=== PATIENT | female | born 1955 ===

== ENCOUNTER 2020-06-23 13:16 | Inpatient (IN) | payer MEDICARE, SELFPAY ==
[2020-06-23] VITALS (25 sets, daily range): BP systolic 148–178; BP diastolic 53–78; PULSE 67–89; RESP 18–29; TEMP 36.7–38.7; O2SAT 93–100; BMI 29.2
--- NOTE | ~2020-06-23 | CT_ITS ---
EXAMINATION: CTA chest PE protocol EXAM DATE: 06/24/2020 12:30 INDICATION: Hypoxia, elevated d dimer. TECHNIQUE: Spiral CTA of the chest (pulmonary arteries) was performed with 100 cc Omnipaque 350 intr avenous contrast injection. Images were acquired during the pulmonary arterial phase. Coronal maxi mum intensity projection 3D-reconstructions were created by the technologist on dedicated workstation . Axial, coronal and sagittal reformatted images were reviewed. The dose-length product (DLP) for t his examination was 798.42 mGy-cm. The exposure was tailored according to patient size (auto mA exp osure control), and iterative reconstruction (ASIR) was used as additional dose reduction technique. Correlation is made to chest x-ray from yesterday. FINDINGS: The main, central pulmonary arteries are dilated which can indicate elevated pulmonary art erial pressure, pulmonary arterial hypertension. No intraluminal filling defects, no pulmonary emboli suspected. No thoracic aortic dissection. There is large right pleural effusion with complete collapse of the right lower lobe and segmental co llapse of the right upper lobe and lingula, compressive atelectasis. There is multifocal left lower lobe airspace disease consistent with pneumonia. Small left pleural ef fusion, left basilar segmental atelectasis. Tracheobronchial tree is patent. There is no mediastina l, hilar or axillary lymphadenopathy. There is no pneumothorax. There is cardiomegaly. There is mild coronary arterial calcification, arterial sclerosis. Nodular liver surface suspicious for cirrh osis. Trace perihepatic ascites. There is mild thoracic spondylosis without osteoblastic or osteolyt ic lesions identified. IMPRESSION: 1. Large right pleural effusion, associated compressive lobar atelectasis. Consider ultrasound-guide d thoracentesis. 2. Multifocal left lower lobe pneumonia. 3. Small left pleural effusion, adjacent segmental atelectasis. 4. Cardiomegaly. Pulmonary arterial hypertension. 5. Probable cirrhosis. 6. No pulmonary emboli. Reviewed, dictated and finalized at location B. MVA REACTOR OPERATOR IMPRESSION: 1. Large right pleural effusion, associated compressive lobar atelectasis. Con oil changer ultrasound-guided thoracentesis. 2. Multifocal left lower lobe pneumonia. 3. Small left pleural effusion, adjacent segmental atelectasis. 4. Cardiomegaly. Pulmonary arterial hypertension. 5. Probable cirrhosis. 6. No pulmonary emboli.
--- NOTE | ~2020-06-23 | XR_ITS ---
EXAMINATION: [id number]_[id number]_CR DATE: 06/25/2020 11:49 INDICATION: Large right pleural effusion TECHNIQUE: frontal view of the chest was obtained. COMPARISON: Chest radiograph dated 06/23/2020 FINDINGS: Decrease in size of a now small to moderate right pleural effusion. New no pneumothorax or left-sided pleural effusion. Increasing patchy airspace opacities in the left mid and lower lung zones. Cardiom egaly. IMPRESSION: 1. Decreased small to moderate right pleural effusion postthoracentesis. No pneumothorax. 2. Right basilar opacities along with increasing patchy airspace opacities in the left mid and lower lung zone which could represent pneumonia and/or atelectasis. 3. Cardiomegaly. Reviewed, dictated and finalized at location A. ED RUBBER GOODS CUTTER IMPRESSION: 1. Decreased small to moderate right pleural effusion postthoracentesis. No pne umothorax. 2. Right basilar opacities along with increasing patchy airspace opacities in t he left mid and lower lung zone which could represent pneumonia and/or atelecta sis. 3. Cardiomegaly.
--- NOTE | ~2020-06-23 | XR_ITS ---
EXAMINATION: XR chest 1V portable DATE: 06/23/2020 14:19 INDICATION: Respiratory failure TECHNIQUE: frontal view of the chest was obtained. COMPARISON: None FINDINGS: Airspace opacity in the right mid and lower lung zone with blunting at the costophrenic angle consist ent with moderate sized right pleural effusion with associated atelectasis and/or pneumonia. Mild pat maisha airspace opacity left lung base. No pulmonary edema, pneumothorax or left-sided pleural effusion. The cardiomediastinal silhouette is within normal limits for AP technique. Visualized bones and soft tissues are unremarkable. IMPRESSION: 1. Unilateral moderate-sized right pleural effusion. 2. Opacities in the bilateral lower lung zones which could represent atelectasis and/or pneumonia. Reviewed, dictated and finalized at location A. ER AND CHECKERER SPECIALS IMPRESSION: 1. Unilateral moderate-sized right pleural effusion. 2. Opacities in the bilateral lower lung zones which could represent atelectasi s and/or pneumonia.
--- NOTE | ~2020-06-23 | US_ITS ---
EXAMINATION: US venous doppler LE DATE: 06/24/2020 09:25 INDICATION: Lower limb swelling. Elevated d-dimer. TECHNIQUE: Grayscale ultrasound images without and with compression and Doppler ultrasound images of the bilateral lower extremity veins were obtained. COMPARISON: None. FINDINGS: The visualized portions of right common femoral vein, profunda (deep) femoral vein, femoral vein, pop liteal vein, posterior tibial veins, peroneal veins, gastrocnemius vein and greater saphenous vein ou tflow are patent. The visualized portions of left common femoral vein, profunda femoral vein, femoral vein, popliteal v ein, posterior tibial veins, gastrocnemius vein and greater saphenous vein outflow are patent. The le ft peroneal veins and posterior tibial veins in the distal calf are unable to be assessed due to the presence of casting material about the left ankle and distal lower leg. IMPRESSION: 1. No deep venous thrombosis in either lower limb. Reviewed, dictated and finalized at location A. ARCH SUBJECT
--- NOTE | ~2020-06-23 | US_ITS ---
EXAMINATION: US right upper quadrant DATE: 06/25/2020 11:48 INDICATION: Cirrhosis on chest CT TECHNIQUE: Multiple grayscale and Doppler ultrasound images of the abdomen were obtained. COMPARISON: CT dated 06/24/2020 FINDINGS: The pancreatic the is normal in appearance. The pancreatic head and tail are obscured. Liver has nor mal echogenicity and contour, with coarsened echotexture and mild surface nodularity consistent with cirrhosis. No liver lesion identified. No intrahepatic biliary duct dilation suspected. Portal venous flow was seen in the hepatopetal, normal direction and has normal Doppler waveform. There are multip le echogenic nodules along the wall of the gallbladder including along the nondependent wall consiste nt with gallbladder polyps, the largest measuring 7 mm in maximal diameter. There is some sludge jyoti g the nondependent gallbladder wall. No evident shadowing cholelithiasis. No dilation of the gallblad oswaldo or gallbladder wall thickening. Sonographic Johansen sign was reported as negative by the sonograph er. The common bile duct measures 6 mm in maximal diameter which is within normal limits. Splenomegaly measuring 14.6 cm in length suggestive of secondary portal venous hypertension. There is cortical thinning at the right kidney with increased echogenicity consistent with medical renal dise ase. There is more focal increased echogenicity at the renal pyramids, one demonstrates an posterior acoustic shadowing which could be seen with medullary nephrocalcinosis and/or small renal stones. No hydronephrosis. The visualized proximal inferior vena cava is normal. Visualized proximal aorta is no rmal in caliber. Small amount of perihepatic ascites. Right pleural effusion. IMPRESSION: 1. Nodular liver surface with coarsened echogenicity consistent with cirrhosis. Splenomegaly suggests secondary portal venous hypertension. 2. A few gallbladder polyps measuring up to 7 mm. Given patient age would is an increased risk of mal ignancy and would consider surgical consultation for elective cholecystectomy. Otherwise recommend si x-month follow-up ultrasound or subsequent annual follow-up for 5 years. 3. Mildly atrophic right kidney with increased echogenicity consistent with medical renal disease and increased echogenicity and suggestion of some shadowing at the renal pyramids suspicious for medulla ry nephrocalcinosis. 4. Right pleural effusion and small amount of perihepatic ascites. Reviewed, dictated and finalized at location A. WORK SUPERVISOR IMPRESSION: 1. Nodular liver surface with coarsened echogenicity consistent with cirrhosis. Splenomegaly suggests secondary portal venous hypertension. 2. A few gallbladder polyps measuring up to 7 mm. Given patient age would is an increased risk of malignancy and would consider surgical consultation for elec tive cholecystectomy. Otherwise recommend six-month follow-up ultrasound or sub sequent annual follow-up for 5 years. 3. Mildly atrophic right kidney with increased echogenicity consistent with med ical renal disease and increased echogenicity and suggestion of some shadowing at the renal pyramids suspicious for medullary nephrocalcinosis. 4. Right pleural effusion and small amount of perihepatic ascites.
--- NOTE | ~2020-06-23 | XR_ITS ---
XR chest 1V portable DATE: 06/27/2020 08:31 INDICATION: Hypoxia TECHNIQUE: Portable upright AP chest on June 27, 2020 at 0833 hours COMPARISON: June 25, 2020 portable AP chest FINDINGS: There is prominent fluid collection in the minor fissure versus less likely prominent disco id atelectasis across the right mid lung. There is blunting of the right costophrenic angle consisten t with terl-oy-eilwocec pleural effusion. There is cardiomegaly, pulmonary vascular congestion. There are persistent bilateral pulmonary infilt rates, which may be consistent with pulmonary edema and/or pneumonia. The infiltrates are increased o n the right since June 25, 2020. IMPRESSION: Cardiomegaly, pulmonary vascular congestion, right pleural effusion, ingesting congestive heart failure Bilateral pulmonary infiltrates, increased on the right since 06/25/2020. Differential diagnosis inclu shauna pulmonary edema and/or pneumonia Reviewed, dictated and finalized at location A. ET COLLECTOR IMPRESSION: Cardiomegaly, pulmonary vascular congestion, right pleural effusion , ingesting congestive heart failure Bilateral pulmonary infiltrates, increased on the right since 06/25/2020. Differ ential diagnosis includes pulmonary edema and/or pneumonia
--- NOTE | ~2020-06-23 | CT_ITS ---
EXAMINATION: CT brain wo [facility] EXAM DATE: 06/24/2020 12:30 INDICATION: Lethargy. TECHNIQUE: Spiral CT of the head was performed without contrast. Axial, coronal and sagittal images were reviewed. The dose-length product (DLP) for this examination was 605.33 mGy-cm. The exposure w as tailored according to patient size, and iterative reconstruction (ASIR) was used as additional dos e reduction technique. There is no prior study for comparison. FINDINGS: There is no acute intraparenchymal hemorrhage. No evidence of intraparenchymal brain mass lesion. No evidence of acute infarction. Please note that initial head CT has limited sensitivity f or small or acute infarctions. There is mild periventricular and subcortical hypodensity, nonspecific but probably related to small vessel ischemic disease. There is mild prominence of the sulci and v entricles related to cerebral atrophy. There is intracranial carotid arteriosclerosis. There are n o extra-axial collections. There is no mass effect or midline shift. The orbits are unremarkable. Soft tissue is unremarkable. The visualized sinuses and mastoid air cells are well aerated. IMPRESSION: 1. No acute intracranial findings. 2. Chronic age related findings. Reviewed, dictated and finalized at location B. OR INFORMATION SECURITY ANALYST
--- NOTE | ~2020-06-23 | US_ITS ---
EXAMINATION: US thoracentesis DATE: 06/25/2020 11:48 INDICATION: pleural effusion TECHNIQUE: The procedure and its risks and benefits were discussed with the patient. Potential risks discussed included bleeding, infection, and pneumothorax. The patient understood the risks and agreed to proceed. The skin was prepped and draped in sterile fashion. 1% lidocaine was used for local anes thesia. Under ultrasound guidance, a 5 Fr catheter with trochar was advanced into the right pleural e ffusion. Fluid was aspirated. The catheter was removed, and a dressing was applied. There were no imm ediate complications. FINDINGS: Ultrasound images demonstrate a large right pleural effusion and the catheter within the fluid. IMPRESSION: 1. Successful ultrasound-guided thoracentesis yielding 1000 mL of dark yellow fluid. Reviewed, dictated and finalized at location A. [employer] MAINTENANCE ENGINEER
--- NOTE | 2020-06-23 13:20 | ED.SOB ---
HPI - SOB/Dyspnea General Chief Complaint: Shortness of Breath/Dyspnea Stated Complaint: sob/from dialysis Time Seen by Provider: 06/23/20 13:21 History of Present Illness HPI Narrative: History limited by medical condition 65 yo female presents to the ED for SOB. She presented to dialysis this morning and was too SOB to receive dialysis. She was diagnosed with COVID-19 5 days ago. She arrives on oxygen, which she says she is not on at baseline. RA oxygen saturation in the 40s. No chest pain or fever. Related Data Allergies Allergy/AdvReac Type Severity Reaction Status Date / Time phenazopyridine Allergy Unknown Verified 08/04/10 10:54 Sulfa (Sulfonamide Allergy Unknown Verified 08/04/10 10:44 Antibiotics) Review of Systems Review of Systems: ROS unobtainable: Yes unobtainable due to medical condition Constitutional: Constitutional: Reports chills, Reports fatigue and Reports weakness Cardiovascular: Cardiovascular: Denies chest pain Respiratory: Respiratory: Reports dyspnea Gastrointestinal: Gastrointestinal: Reports nausea Neurologic: Reports weakness [facility] Past Medical History Medical History (Updated 06/23/20 @ 15:29 by Miguel Lynn MD) COVID-19 ESRD on dialysis Social History Social History (Updated 06/23/20 @ 15:24 by Miguel Lynn MD) Gender identity (if verbalized by the patient): Female Exam Const: General: ill appearing acutely and chronically Other: moderate distress. Oriented x2. HENMT: Head: normal to inspection Resp: Effort & Inspection: labored and tachypneic Auscultation: rales on the right and wheezes Cardio: Rate: regular rate Rhythm: regular rhythm GI: GI Palp: Yes Soft to palpation and No Tenderness to palpation present (GI) Skin: General skin exam: normal color Neuro: General: moves all extremities, no focal motor deficits and CN's II-XI intact bilaterally Speech: normal speech Extrem: General: no edema Other: Cast to left lower leg Course Vital Signs Vital signs: Vital Signs Pulse Rate 89 06/23/20 13:36 Respiratory Rate 28 H 06/23/20 13:36 Pulse Oximetry 96 06/23/20 13:36 Temperature 36.7 C 06/23/20 13:56 Pulse Rate 72 06/23/20 15:45 Respiratory Rate 23 H 06/23/20 15:45 Blood Pressure 160/53 H 06/23/20 15:32 Pulse Oximetry 100 06/23/20 15:45 MDM - SOB/Dyspnea Differential Diagnosis Differential diagnosis: Likely acute exacerbation of chronic obstructive airways disease, congestive heart failure, community acquired pneumonia and other (fluid overload, COVID-19 pneumonia) Medical Records Attestation: I reviewed the patient's medical records. Lab Data Attestation: I reviewed the patient's lab results. Result diagrams: 06/23/20 13:51 06/23/20 13:50 Labs: Lab Results 06/23/20 06/23/20 06/23/20 Range/Units 13:50 13:50 13:50 WBC (4.5-10.0) K/mm3 RBC (4.2-5.4) M/mm3 Hgb (12.0-15.0) g/dL Hct (37.0-47.0) % MCV (80-100) fl MCH (26-34) pg MCHC (32-36) g/dl RDW (11.5-14.5) % Plt Count (150-375) k/mm3 MPV (7.4-10.4) fl Immature Gran % (Auto) (0-0.5) % Neut % (Auto) (45.5-73.1) % Lymph % (Auto) (18.3-44.2) % [place]iken % (Auto) (2.6-8.5) % Eos % (Auto) (0-4.4) % Baso % (Auto) (0.2-1.2) % Lymph # (Auto) (0.9-3.2) K/mm3 Aiken # (Auto) (0.1-0.6) K/mm3 Eos # (Auto) (0-0.3) K/mm3 Baso # (Auto) (0.0-0.1) K/mm3 Abs Immat Gran (auto) (0.00-0.031) K/mm3 Absolute Neuts (auto) (1.3-6.7) K/mm3 Absolute Nucleated RBC (0.0-0.012) K/mm3 Nucleated RBC % (0.0-0.2) % PT 13.9 (11.1-14.7) Seconds INR 1.0 APTT 41.7 H (22.3-36.8) SECONDS Methemoglobin (0-1.5) %THb Expiratory Pressure CMH2O Inspiratory Pressure CMH2O Sodium 127 L (137-145) mmol/L Potassium 3.3 L (3.4-5.0) mmol/L Chloride 84 L (98-107) mmol/L Carbon Dioxide 36 H (22-30) m
--- NOTE | 2020-06-23 13:31 | ECG_ITS ---
Measurements Intervals [place] Rate: 88 P: 31 VT: 225 QRS: -55 QRSD: 158 T: 44 QT: 421 QTc: 512 Interpretive Statements SINUS RHYTHM WITH FIRST DEGREE AV BLOCK LEFT AXIS DEVIATION RIGHT BUNDLE BRANCH BLOCK VOLTAGE CRITERIA FOR LVH BASELINE WANDER- II, III, AVR, AVL, AVF, V3-V6 ABNORMAL ECG Electronically Signed On 06-23-2020 14:05:32 HIGH SCHOOL AUTO REPAIR TEACHER by Scottie Wan D.O.
[2020-06-23] MEDS: IPRATROPIUM BR 0.02% INH SOLN 0.5 MG/2.5 ML VIAL 1 MG INHALATION (13:49)
[2020-06-23] MEDS: ALBUTEROL SULFATE NEB 2.5 MG/0.5 ML INH 10 MG INHALATION (13:49)
[2020-06-23 14:05] LABS: Basophils Percent Auto 0.5 % (0.2-1.2); Hematocrit 29.2 % (37.0-47.0); Immature Granulocyte Absolute 0.04 K/mm3 (0.00-0.031); Lymphocytes Percent Auto 10.3 % (18.3-44.2); Mean Corpuscular HGB Conc 34.2 g/dl (32-36); Mean Corpuscular Hemoglobin 31.5 pg (26-34); Mean Corpuscular Volume 92.1 fl (80-100); Monocytes Absolute Auto 0.3 K/mm3 (0.1-0.6); Monocytes Percent Auto 8.2 % (2.6-8.5); Neutrophils Absolute Auto 3.1 K/mm3 (1.3-6.7); Platelet Count Result 163 k/mm3 (150-375); Red Blood Count 3.17 M/mm3 (4.2-5.4); Red Cell Distribution Width 13.9 % (11.5-14.5); White Blood Count 3.9 K/mm3 (4.5-10.0)
[2020-06-23 14:14] LABS: Prothrombin Time 13.9 Seconds (11.1-14.7)
[2020-06-23 14:14] LABS: Alveolar/Arterial O2 Gradient 238.5 mmHg; Base Excess ABG 7.3 mEq/l (+/-2.0); Carboxyhemoglobin 0.1 % THb (0-2.0); Fractional Inspired Oxygen 50 %; HCO3 ABG 31.7 mEq/l (22.0-26.0); Methemoglobin ABG 0.2 %THb (0-1.5); Oxygen Content ABG 13.4 %vol (16.0-22.0); Oxygen Saturation ABG 94.6 % (95.0-100.0); Oxyhemoglobin 92.9 % THb (90.0-100.0); PCO2 ABG 44.3 mmHg (35.0-45.0); PO2 ABG 68.2 mmHg (80.0-100.0); PO2 FiO2 Ratio Arterial Blood 1.36 %; Reduced Hemoglobin 6.8 %THb (0-5.0); Total Hemoglobin 10.2 g/dL (12.0-18.0); pH ABG 7.472 (7.350-7.450)
[2020-06-23 14:15] LABS: Partial Thromboplastin Time 41.7 SECONDS (22.3-36.8)
[2020-06-23 14:17] LABS: Lactic Acid Reflex 0.6 mmol/L (0.7-2.1)
[2020-06-23 14:18] LABS: Alanine Aminotransferase 13 U/L (4-35); Albumin Level 3.5 g/dL (3.5-5.1); Alkaline Phosphatase 58 U/L (38-126); Anion Gap 7 mmol/L (8-16); Aspartate Amino Transferase 42 U/L (14-36); Bilirubin,Total 0.7 mg/dL (0.2-1.3); Blood Urea Nitrogen 40 mg/dL (7-17); Calcium 8.7 mg/dL (8.4-10.2); Carbon Dioxide 36 mmol/L (22-30); Chloride 84 mmol/L (98-107); Estimated CRCL calculation 8 ml/min; Estimated Glomerular Filt Rate 6; Glucose 81 mg/dL (65-105); Magnesium 2.1 mg/dL (1.6-2.3); Potassium 3.3 mmol/L (3.4-5.0); Sodium 127 mmol/L (137-145)
[2020-06-23 14:19] LABS: Device NON-INVASIVE VENT; Modified Allen's Test Pass; Site Drawn LEFT RADIAL
[2020-06-23 14:20] LABS: Non-Invasive Expiratory Pressure 6 CMH2O; Non-Invasive Inspiratory Pressure 12 CMH2O
[2020-06-23 14:28] LABS: CRP 13.4 mg/dL (<1.0)
--- NOTE | 2020-06-23 17:18 | PM.CNNEP ---
Assessment and Plan Assessment and plan (1) End stage renal disease: Code(s): N18.6 - End stage renal disease Status: Acute Assessment and Plan: normally does HD on // schedule however, given stable electrolytes and no evidence of pulmonary edema, plan HD tomorrow follow electrolytes, clearance, and volume status (2) Acute respiratory failure with hypoxia: Code(s): J96.01 - Acute respiratory failure with hypoxia Status: Acute Assessment and Plan: presumably due to a combination of COVID-19 + pleural effusion presumably to start decadron but remdesivir contraindicated given her ESRD consideration to convalescent plasma(?) follow inflammatory markers (3) Altered mental status: Code(s): R41.82 - Altered mental status, unspecified Status: Acute Assessment and Plan: acute change versus chronic issue? (however, she recognized me even though I have not seen her in several years) related to acute medical issues(?) - hypoxia, COVID-19, missed HD treatment today?? follow mentation for now (4) Pleural effusion on right: Code(s): J90 - Pleural effusion, not elsewhere classified Status: Acute Assessment and Plan: acute or chronic? consider thoracentesis depending on hospital course (5) Hypertension: Code(s): I10 - Essential (primary) hypertension Status: Acute Assessment and Plan: reasonable control follow hemodynamics post-HD (6) Ankle fracture, left: Code(s): S82.892A - Other fracture of left lower leg, initial encounter for closed fracture Status: Acute Assessment and Plan: cast in place follow-up with outpatient Orthopedics (7) Diabetes: Code(s): E11.9 - Type 2 diabetes mellitus without complications Status: Acute Assessment and Plan: follow accuchecks glycemic control Will continue to follow. History of Present Illness Reason for Consult Consult date: 06/23/20 Reason for consult: end stage renal disease Chief Complaint Chief complaint: Acute respiratory with hypoxia/ESRD History of Present Illness Narrative: The patient is a 65-year-old female with a past medical history as outlined below who presented to [facility] Emergency room from her outpatient dialysis unit via EMS for further evaluation of acute onset shortness of breath. The patient has not been feeling well for about a week and recently tested positive for COVID-19 approximately 5 days ago. due to her COVID-19 positive status, her dialysis unit was transition to [facility] in [place], [place] as this unit has been treating COVID-19 patient's for last several months. Apparently, upon her presentation and to her dialysis unit earlier today for her scheduled dialysis treatment she was reportedly visibly short of breath. Apparently, her O2 saturations were 40% on room air and with application of 4 L of oxygen increased only to 77 - 80%. She normally does not wear oxygen at all and the shortness of breath seem to come on suddenly associated with some vomiting. Because of these findings, EMS was called and she was subsequently brought to the ER for further evaluation. Workup and evaluation in the emergency room demonstrated the patient to be in mild respiratory distress and given that supplemental oxygen alone was not maintaining her oxygen saturations, she was switched to BiPAP with significant improvement in her oxygen saturations as well as her respiratory status. Routine blood test demonstrated labs consistent with her known history of end-stage renal disease and her chest x-ray showed findings consistent with possible pneumonia as well as a moderate-sized right pleural effusion. Due to her symptoms of shortness of breath, her chest x-ray findings, as well as her known history of COVID-19, she was maintained on BiPAP therapy and subsequent admitted to the hospital for further
--- NOTE | 2020-06-23 17:27 | ADMGEN ---
This patient, Allyson Franks, was admitted to IMU Room 214-01. Patient/family oriented to hospital policies and general routines including ID bracelet, bed and alarms, visiting hours, pain management, procedures, bathroom and other care routines, personal items, smoking policy, room service/diet, and visiting hours. Information on how to activate the Rapid Response Team has been discussed. Patient/Family are encouraged to report perceived risks to care and to ask questions if they do not understand what they are told or what they should do.
--- NOTE | 2020-06-23 18:15 | PM.IMHP ---
H&P: HPI History of Present Illness Date/Time: 06/23/20 18:15 Chief Complaint: Shortness of breath. Narrative: This is a 65-year-old female with insulin-dependent diabetes, hypertension, end-stage renal disease on hemodialysis, and chronic anemia who presented to the emergency department earlier today via EMS from dialysis for evaluation of shortness of breath. She has not been feeling well for about a week and tested positive for COVID-19 for or 5 days ago. Upon presentation to dialysis today she was quite short of breath with a reported SpO2 in the 40s on room air and thus she was sent to the emergency department where she was started on BiPAP with improvement in her saturations and respiratory distress. Chest x-ray showed findings consistent with pneumonia as well as a moderate size right pleural effusion and she is being admitted in this setting. At the time of my evaluation she is comfortable on the BiPAP and has no significant complaints. She seems a little bit confused and is alert and oriented x2, and the day shift nurse indicates to me that this has been her baseline, at least as long as she has been at the rehab facility after breaking her left ankle. At this time she denies headache, chest pain, pleuritic pain, nausea, vomiting, and diarrhea. Review of Systems Review of Systems: Narrative: A review of systems was completed with pertinent positives and negatives as per HPI. Appetite has not been good. Nurse reports that she would not swallow her pills this evening. Temperature was high at that time so it may be related to that. No known history of venous thromboembolism. Except as documented, all other systems were reviewed and are negative. [facility] Past Medical History Medical History (Updated 06/24/20 @ 02:45 by Tiff Chapin PA-C) Anemia of chronic disease COVID-19 Depression Diabetic neuropathy Diabetic retinopathy End-stage renal disease on hemodialysis Hyperlipidemia Hypertension Insulin dependent type 2 diabetes mellitus Surgical History Surgical History (Updated 06/24/20 @ 02:38 by Tiff Chapin PA-C) Status post creation of arteriovenous fistula Family History Family History (Updated 06/24/20 @ 02:38 by Tiff Chapin PA-C) Other Family history unknown Social History Social History (Updated 06/24/20 @ 02:38 by Tiff Chapin PA-C) Social History: Surrogate decision maker: Art jose Olsener. Code status: Full code. Smoking packs per day: 2 Smoking cigarettes per day: 40.0 Years smoked: 10 Smoking pack-years: 20.00 Smoking status: Former smoker Tobacco type: cigarettes Additional living arrangements comments: Lives in [place]. Currently at [facility]. Additional occupation/education comments: Works in [employer] at [employer]. Gender identity (if verbalized by the patient): Female Spiritual care concerns: No Meds Home Medications and Allergies Home Medications Medication Instructions Recorded Confirmed Type amlodipine 10 mg PO DAILY 06/23/20 06/23/20 History baclofen 10 mg PO Q8H PRN 06/23/20 06/23/20 History carvedilol 12.5 mg PO BID 06/23/20 06/23/20 History citalopram 20 mg PO DAILY 06/23/20 06/23/20 History gabapentin 300 mg PO 3XW 06/23/20 06/23/20 History hydrocodone-acetaminophen [[place]] 1 tablet PO Q4H PRN 06/23/20 06/23/20 History insulin glargine 5 unit SUBCUT 1900 06/23/20 06/23/20 History lisinopril 40 mg PO DAILY 06/23/20 06/23/20 History ondansetron HCl [Zofran] 8 mg PO BID PRN 06/23/20 06/23/20 History polyethylene glycol 3350 [Miralax] 17 g PO DAILY 06/23/20 06/23/20 History sennosides [senna] 8.6 mg PO DAILY 06/23/20 06/23/20 History sevelamer carbonate 1,600 mg PO TID 06/23/20 06/23/20 History simvastatin 20 mg PO DAILY 06/23/20 06/23/20 History sodium chloride [[place] Nasal] 2 spray INTRANASAL DAILY 06/23/20 06/23/20 History Allergies Allergy/AdvReac Type Severity Reaction Status Date
[2020-06-23 19:42] LABS: Hemoglobin A1C 4.6 % (<5.7)
[2020-06-23 20:03] LABS: Glucose Point of Care 68 (65-105)
[2020-06-23] MEDS: DEXTROSE 50% 25 GM/50 ML SYRINGE IV PUSH (20:14)
[2020-06-23] MEDS: DEXAMETHASONE SOD PHOS INJ 4 MG/ML VIAL 6 MG IV PUSH (20:22)
[2020-06-23] MEDS: HEPARIN SODIUM 5,000 UNITS/ML VIAL 5000 UNITS SUB-Q (20:22)
[2020-06-23 20:46] LABS: Glucose Point of Care 118 (65-105)
[2020-06-24] VITALS (33 sets, daily range): BP systolic 134–170; BP diastolic 45–88; PULSE 58–81; RESP 14–22; TEMP 36.1–37.4; O2SAT 92–100
[2020-06-24 03:51] LABS: Hematocrit 25.8 % (37.0-47.0); Immature Platelet Fraction Pct 4.6 % (0.9-11.2); Mean Corpuscular HGB Conc 34.9 g/dl (32-36); Mean Corpuscular Hemoglobin 32.1 pg (26-34); Mean Corpuscular Volume 92.1 fl (80-100); Mean Platelet Volume 10.5 fl (7.4-10.4); Platelet Count Result 133 k/mm3 (150-375); Red Cell Distribution Width 13.7 % (11.5-14.5); White Blood Count 4.2 K/mm3 (4.5-10.0)
[2020-06-24 04:01] LABS: D Dimer 3.81 ug/mL (<0.48)
[2020-06-24 04:58] LABS: Anion Gap 9 mmol/L (8-16); Blood Urea Nitrogen 50 mg/dL (7-17); Calcium 8.3 mg/dL (8.4-10.2); Carbon Dioxide 33 mmol/L (22-30); Chloride 85 mmol/L (98-107); Estimated CRCL calculation 7 ml/min; Estimated Glomerular Filt Rate 5; Glucose 103 mg/dL (65-105); Magnesium 2.1 mg/dL (1.6-2.3); Phosphorus 5.6 mg/dL (2.5-4.5); Potassium 3.7 mmol/L (3.4-5.0); Sodium 127 mmol/L (137-145)
[2020-06-24 05:24] LABS: Hepatitis B Surface Antigen Negative (Negative)
[2020-06-24 05:30] LABS: HAV RESULT Negative (Negative); Hepatitis B Core IgM Result Negative (Negative)
[2020-06-24 05:49] LABS: Hepatitis B Surface Anti Res Positive; Hepatitis C Virus Antibody Negative (Negative)
[2020-06-24 08:32] LABS: Glucose Point of Care 119 (65-105)
[2020-06-24 08:36] LABS: Basophils Percent Auto 0.3 % (0.2-1.2); Hematocrit 27.2 % (37.0-47.0); Hemoglobin 9.4 g/dL (12.0-15.0); Immature Granulocyte Absolute 0.03 K/mm3 (0.00-0.031); Immature Granulocyte Percent A 0.9 % (0-0.5); Lymphocytes Absolute Auto 0.39 K/mm3 (0.9-3.2); Lymphocytes Percent Auto 11.7 % (18.3-44.2); Mean Corpuscular HGB Conc 34.6 g/dl (32-36); Mean Corpuscular Hemoglobin 31.5 pg (26-34); Mean Corpuscular Volume 91.3 fl (80-100); Mean Platelet Volume 9.7 fl (7.4-10.4); Monocytes Absolute Auto 0.2 K/mm3 (0.1-0.6); Monocytes Percent Auto 4.8 % (2.6-8.5); Neutrophils Absolute Auto 2.7 K/mm3 (1.3-6.7); Neutrophils Percent Auto 82.3 % (45.5-73.1); Platelet Count Result 126 k/mm3 (150-375); Red Blood Count 2.98 M/mm3 (4.2-5.4); Red Cell Distribution Width 13.6 % (11.5-14.5); White Blood Count 3.3 K/mm3 (4.5-10.0)
[2020-06-24 08:50] LABS: Albumin Level 2.9 g/dL (3.5-5.1); Anion Gap 8 mmol/L (8-16); Blood Urea Nitrogen 52 mg/dL (7-17); Calcium 8.2 mg/dL (8.4-10.2); Carbon Dioxide 34 mmol/L (22-30); Chloride 85 mmol/L (98-107); Estimated CRCL calculation 7 ml/min; Estimated Glomerular Filt Rate 5; Glucose 121 mg/dL (65-105); Phosphorus 6.3 mg/dL (2.5-4.5); Potassium 3.6 mmol/L (3.4-5.0); Sodium 127 mmol/L (137-145)
[2020-06-24] MEDS: lisinopriL 20 MG TABLET 40 MG PO (09:25)
[2020-06-24] MEDS: GABAPENTIN 300 MG CAPSULE PO (09:25)
[2020-06-24] MEDS: CITALOPRAM HYDROBROMIDE 20 MG TABLET PO (09:25)
[2020-06-24] MEDS: amLODIPine BESYLATE 5 MG TABLET 10 MG PO (09:25)
[2020-06-24] MEDS: carvediloL 12.5 MG TABLET PO ×2 (09:25→20:12)
[2020-06-24] MEDS: SALINE 0.65% NAS SOLN 44 ML BTL 2 SPRAY NASAL (09:26)
[2020-06-24] MEDS: polyethylene glycoL 3350 17 GM POWD.PACK PO (09:26)
[2020-06-24] MEDS: SIMVASTATIN 20 MG TABLET PO (09:26)
[2020-06-24] MEDS: DEXAMETHASONE SOD PHOS INJ 4 MG/ML VIAL 6 MG IV PUSH (09:26)
[2020-06-24] MEDS: HEPARIN SODIUM 5,000 UNITS/ML VIAL 5000 UNITS SUB-Q (09:26)
[2020-06-24] MEDS: SENNOSIDES 8.6 MG TABLET PO (09:27)
[2020-06-24] MEDS: SEVELAMER CARBONATE 800 MG TABLET 1600 MG PO ×2 (09:33→18:15)
--- NOTE | 2020-06-24 10:57 | PM.IMPN ---
Progress Note: A&P Assessment and Plan (1) Acute respiratory failure with hypoxia: Code(s): J96.01 - Acute respiratory failure with hypoxia Status: Acute Assessment and Plan: Likely secondary to COVID-19 (tested positive 5 days ago) vs fluid overload and moderate right pleural effusion. Chest CTA ordered due to elevated D-dimer, recent immobility, and left ankle fracture and pending. She was previously on BiPAP and she is now on 3 liters per nasal cannula. Continue supplemental oxygen with goal oxygen saturation >90%, wean as tolerated Respiratory therapy following with input appreciated Further treatment of COVID-19 per plan below (2) COVID-19: Code(s): U07.1 - COVID-19 Status: Acute Assessment and Plan: She tested positive 5 days ago outpatient and was noted to be hypoxic at hemodialysis. Chest CXR demonstrates opacities in the bilateral lower lung zones. She was on BiPAP initially and she is now on 3 liters per nasal cannula. She is not a candidate for remdesivir due to ESRD on HD Continue dexamethasone (initiated 06/23) Continue supportive care with tylenol as needed for fever, PEP therapy, expectorant, and bronchodilator as needed (3) Lethargy: Code(s): R53.83 - Other fatigue Status: Acute Assessment and Plan: She is alert and oriented to self, place, year, and does not seem significantly confused. Per reports, she has been disoriented while at the rehab facility. She is very lethargic but exam is non-focal. This may be secondary to acute illness with hypoxic respiratory failure vs need for hemodialysis vs medication. Order STAT ABG and CT brain wo contrast Check ammonia, vitamin B12, and folate Plan for hemodialysis, discussed with nephrology Monitor closely with q4 hour neuro checks Hold gabapentin and baclofen for now as this can be sedating and avoid any further sedatives (4) End-stage renal disease on hemodialysis: Code(s): N18.6 - End stage renal disease; Z99.2 - Dependence on renal dialysis Status: Acute Assessment and Plan: She dialyzes on a M,W,F schedule. Nephrology consulted to maintain hemodialysis while inpatient Monitor electrolytes closely with renal function panel daily (5) Pleural effusion on right: Code(s): J90 - Pleural effusion, not elsewhere classified Status: Acute Assessment and Plan: Unilateral moderate-sized right pleural effusion. She is breathing comfortably now. Continue to monitor for now and may consider thoracentesis based on progression (6) Electrolyte abnormality: Code(s): E87.8 - Other disorders of electrolyte and fluid balance, not elsewhere classified Status: Acute Assessment and Plan: Sodium is 127, chloride 85, and COD 34. Appreciate nephrology input She is in need of hemodialysis and will follow trend (7) Insulin dependent type 2 diabetes mellitus: Code(s): E11.9 - Type 2 diabetes mellitus without complications; Z79.4 - watermelon inspector (current) use of insulin Status: Acute Assessment and Plan: Blood sugars were reviewed and are well-controlled. Most recent blood sugar is 121. Continue consistent carb diet, ACHS glucose monitoring, sliding scale insulin, and hypoglycemia protocol Lantus held for now and will follow trend and resume if needed since oral intake is minimal at this time (8) Anemia of chronic disease: Code(s): D63.8 - Anemia in other chronic diseases classified elsewhere Status: Acute Assessment and Plan: Hb 10.0 on arrival. Baseline unknown. She has no evidence of bleeding at this time. Check vitamin B12, folate, and iron studies Continue to monitor with CBC daily, transfuse as needed to maintain Hb >7 (9) Hypertension: Code(s): I10 - Essential (primary) hypertension Status: Acute Assessment and Plan: Blood pressures are
[2020-06-24 11:20] LABS: Carboxyhemoglobin 0.3 % THb (0-2.0); Fractional Inspired Oxygen 32 %; HCO3 ABG 30.9 mEq/l (22.0-26.0); Methemoglobin ABG 0.3 %THb (0-1.5); Oxygen Content ABG 13.1 %vol (16.0-22.0); Oxygen Saturation ABG 97.4 % (95.0-100.0); Oxyhemoglobin 95.6 % THb (90.0-100.0); PCO2 ABG 46.7 mmHg (35.0-45.0); PO2 ABG 94.5 mmHg (80.0-100.0); PO2 FiO2 Ratio Arterial Blood 2.95 %; Reduced Hemoglobin 3.8 %THb (0-5.0); Total Hemoglobin 9.6 g/dL (12.0-18.0); pH ABG 7.438 (7.350-7.450)
[2020-06-24 11:22] LABS: Modified Allen's Test Pass; Site Drawn LEFT RADIAL
[2020-06-24 11:23] LABS: Device NASAL CANNULA
[2020-06-24 11:56] LABS: Ammonia < 9 umol/L (9-30)
[2020-06-24 13:25] LABS: Glucose Point of Care 143 (65-105)
--- NOTE | 2020-06-24 16:08 | PM.PNNEP ---
Progress Note: A&P Assessment and Plan (1) End stage renal disease: Code(s): N18.6 - End stage renal disease Status: Acute Assessment and Plan: normally does HD on // schedule HD today and likely tomorrow or Sunday with transition eventually back to // schedule follow electrolytes, clearance, and volume status (2) Acute respiratory failure with hypoxia: Code(s): J96.01 - Acute respiratory failure with hypoxia Status: Acute Assessment and Plan: presumably due to a combination of COVID-19 + pleural effusion on decadron but remdesivir contraindicated given her ESRD convalescent plasma ordered follow inflammatory markers (3) Altered mental status: Code(s): R41.82 - Altered mental status, unspecified Status: Acute Assessment and Plan: acute change versus chronic issue? (however, she recognized me even though I have not seen her in several years) related to acute medical issues(?) - hypoxia, COVID-19, missed HD treatment yesterday?? follow mentation for now (4) Pleural effusion on right: Code(s): J90 - Pleural effusion, not elsewhere classified Status: Acute Assessment and Plan: acute or chronic? thoracentesis ordered (5) Hypertension: Code(s): I10 - Essential (primary) hypertension Status: Acute Assessment and Plan: reasonable control follow hemodynamics post-HD (6) Ankle fracture, left: Code(s): S82.892A - Other fracture of left lower leg, initial encounter for closed fracture Status: Acute Assessment and Plan: cast in place follow-up with outpatient Orthopedics (7) Diabetes: Code(s): E11.9 - Type 2 diabetes mellitus without complications Status: Acute Assessment and Plan: follow accuchecks glycemic control Will continue to follow. Subjective Date/time seen: 06/24/20 16:08 Tolerating dialysis at the time of my visit (seen on HD at 4:00PM); appears more awake and alert in comparison to earlier today per nursing; no apparent distress voiced at this time; no events/issues overnight. Exam Narrative: Exam Narrative: General: WD/WN female in NAD Heart: normal S1 and S2; no rub Lungs: decreased at bases R> L Abdomen: soft, nontender, nondistended, positive bowel sounds Extremities: no cyanosis or clubbing; no edema; cast in place Skin: warm and dry Objective Data Vital Signs Vital Signs: Vital Signs Temp Pulse Resp BP Pulse Ox 06/24/20 13:56 37.0 C 63 18 159/58 H 96 06/24/20 12:00 36.9 C 60 14 170/60 H 96 06/24/20 10:00 93 06/24/20 09:25 64 06/24/20 08:00 37.0 C 61 16 147/49 H 96 06/24/20 05:58 59 L 06/24/20 04:00 36.1 C L 58 L 22 H 146/45 H 100 06/24/20 03:24 100 06/24/20 02:00 62 06/24/20 01:35 64 16 99 06/24/20 00:14 37.4 C 06/24/20 00:00 67 06/23/20 23:59 38.5 C H 06/23/20 23:47 38.7 C H 73 20 150/53 H 98 06/23/20 22:00 70 06/23/20 21:02 70 24 H 98 06/23/20 20:00 72 06/23/20 19:37 38.4 C H 73 22 H 178/65 H 97 Intake/Output Intake/Output: Intake & Output 06/21/20 06/22/20 06/23/20 06/24/20 23:59 23:59 23:59 23:59 Intake Total 200 Output Total 0 Balance 200 Meds/Results Medications: Active Medications Generic Name Dose Route Start Last Admin Trade Name Freq PRN Reason Stop Dose Admin Albuterol 2 puff 06/24/20 11:14 Albuterol Sulfate (*Sp) Aerosol 1 Puff INHALATION QIDRT PRN Shortness Of Breath Amlodipine Besylate 10 mg 06/24/20 09:00 06/24/20 09:25 Amlodipine Besylate 5 Mg Tablet PO 10 mg DAILY JANET Administration Carvedilol 12.5 mg 06/23/20 21:00 06/24/20 09:25 Carvedilol 12.5 Mg Tablet PO 12.5 mg Q12HR JANET Administration Citalopram Hydrobromide 20 mg 06/24/20 09:00 06/24/20 09:25 Citalopram Hydrobromide 20 Mg Tablet PO 20 mg DAILY JANET Admin
[2020-06-24 18:09] LABS: Glucose Point of Care 108 (65-105)
[2020-06-24] MEDS: guaiFENesin 12 HR 600 MG TABCR 1200 MG PO (20:12)
[2020-06-24 21:09] LABS: Glucose Point of Care 112 (65-105)
[2020-06-25] VITALS (22 sets, daily range): BP systolic 124–174; BP diastolic 42–122; PULSE 64–88; RESP 16–28; TEMP 36.6–38.1; O2SAT 90–100
[2020-06-25 01:10] LABS: Folic Acid 10.9 ng/mL (2.76->20)
[2020-06-25 02:25] LABS: Vitamin B12 > 1000.0 pg/mL (239-931)
[2020-06-25 05:18] LABS: Hematocrit 26.1 % (37.0-47.0); Hemoglobin 8.8 g/dL (12.0-15.0); Immature Granulocyte Absolute 0.05 K/mm3 (0.00-0.031); Immature Granulocyte Percent A 0.8 % (0-0.5); Immature Platelet Fraction Pct 4.9 % (0.9-11.2); Lymphocytes Absolute Auto 0.22 K/mm3 (0.9-3.2); Lymphocytes Percent Auto 3.6 % (18.3-44.2); Mean Corpuscular HGB Conc 33.7 g/dl (32-36); Mean Corpuscular Hemoglobin 31.2 pg (26-34); Mean Corpuscular Volume 92.6 fl (80-100); Mean Platelet Volume 10.6 fl (7.4-10.4); Monocytes Absolute Auto 0.3 K/mm3 (0.1-0.6); Monocytes Percent Auto 5.3 % (2.6-8.5); Neutrophils Absolute Auto 5.5 K/mm3 (1.3-6.7); Neutrophils Percent Auto 90.3 % (45.5-73.1); Platelet Count Result 143 k/mm3 (150-375); Red Blood Count 2.82 M/mm3 (4.2-5.4); White Blood Count 6.1 K/mm3 (4.5-10.0)
[2020-06-25 05:24] LABS: INR 1.1; Prothrombin Time 15.2 Seconds (11.1-14.7)
[2020-06-25 05:25] LABS: Partial Thromboplastin Time 36.4 SECONDS (22.3-36.8)
[2020-06-25 05:39] LABS: Albumin Level 2.9 g/dL (3.5-5.1); Anion Gap 6 mmol/L (8-16); Blood Urea Nitrogen 33 mg/dL (7-17); CRP 8.7 mg/dL (<1.0); Calcium 8.6 mg/dL (8.4-10.2); Carbon Dioxide 30 mmol/L (22-30); Chloride 94 mmol/L (98-107); Creatine Kinase < 20 U/L (30-135); Estimated CRCL calculation 11 ml/min; Estimated Glomerular Filt Rate 9; Glucose 92 mg/dL (65-105); Lactate Dehydrogenase 551 U/L (313-618); Phosphorus 3.7 mg/dL (2.5-4.5); Potassium 3.7 mmol/L (3.4-5.0); Sodium 130 mmol/L (137-145)
[2020-06-25 05:51] LABS: Iron 77 ug/dL (37-170)
[2020-06-25 06:01] LABS: Percent Iron Saturation 45 % (20-50)
[2020-06-25 08:56] LABS: Glucose Point of Care 90 (65-105)
[2020-06-25] MEDS: DEXAMETHASONE SOD PHOS INJ 4 MG/ML VIAL 6 MG IV PUSH (09:17)
[2020-06-25] MEDS: SIMVASTATIN 20 MG TABLET PO (09:17)
[2020-06-25] MEDS: guaiFENesin 12 HR 600 MG TABCR 1200 MG PO ×2 (09:17→21:29)
[2020-06-25] MEDS: amLODIPine BESYLATE 5 MG TABLET 10 MG PO (09:18)
[2020-06-25] MEDS: lisinopriL 20 MG TABLET 40 MG PO (09:18)
[2020-06-25] MEDS: CITALOPRAM HYDROBROMIDE 20 MG TABLET PO (09:18)
[2020-06-25] MEDS: carvediloL 12.5 MG TABLET PO ×2 (09:18→21:29)
--- NOTE | 2020-06-25 09:58 | PM.IMPN ---
Progress Note: A&P Assessment and Plan (1) Acute respiratory failure with hypoxia: Code(s): J96.01 - Acute respiratory failure with hypoxia Status: Acute Assessment and Plan: Likely secondary to COVID-19 (tested on 06/17/20 and results available 06/22/20) vs. fluid overload and moderate right pleural effusion. Chest CTA ordered due to elevated D-dimer, recent immobility, and left ankle fracture and negative for pulmonary embolism but did show large right pleural effusion with adjacent compressive lobar atelectasis and multifocal left lower lobe pneumonia. She was previously on BiPAP and was weaned to room air. Continue supplemental oxygen with goal oxygen saturation >90%, wean as tolerated Respiratory therapy following with input appreciated Further treatment per plan below (2) COVID-19: Code(s): U07.1 - COVID-19 Status: Acute Assessment and Plan: She tested positive on 06/17/20 and results were available 06/22/20. She was noted to be hypoxic at hemodialysis. Chest CXR demonstrated opacities in the bilateral lower lung zones. She was on BiPAP initially and she was weaned to 3 liters per nasal cannula yesterday. She was weaned to room air today. She is not a candidate for remdesivir due to ESRD on HD Continue dexamethasone (initiated 06/23) Convalescent plasma was considered but she was weaned to room air today. May consider if her respiratory status worsens but she has improved significantly at this time. Continue supportive care with tylenol as needed for fever, PEP therapy, expectorant, and bronchodilator as needed (3) Cirrhosis: Code(s): K74.60 - Unspecified cirrhosis of liver Status: Acute Assessment and Plan: Chest CTA suggested cirrhosis and RUQ US further confirms coarsened echotexture and mild surface nodularity consistent with cirrhosis and splenomegaly suggesting portal venous hypertension. Hepatitis panel is negative. She reports no hx of alcohol use. Plan for outpatient follow-up with referral to GI Will order echo to evaluate for right sided heart failure (4) Lethargy: Code(s): R53.83 - Other fatigue Status: Resolved Assessment and Plan: Resolved. She is alert and oriented x4 and much more alert today. Per reports, she has been disoriented while at the rehab facility and was confused on admission to our facility but seems to be much better from that standpoint. She appears at her baseline and confusion on admission was likely secondary to hypoxia as CT brain was unremarkable and ABG without any significant hypercapnia. Respiratory status is much better. Lethargy may have also been secondary to uremia and she is much better today following dialysis. Ammonia is <9. Vitamin B12 and folate are sufficient. Hold gabapentin and baclofen for now as this can be sedating and avoid any further sedatives (5) End-stage renal disease on hemodialysis: Code(s): N18.6 - End stage renal disease; Z99.2 - Dependence on renal dialysis Status: Acute Assessment and Plan: She dialyzes on a M,W,F schedule. She received dialysis yesterday since she did not get a full session on 06/23. Nephrology consulted to maintain hemodialysis while inpatient Monitor electrolytes closely with renal function panel daily (6) Pleural effusion on right: Code(s): J90 - Pleural effusion, not elsewhere classified Status: Acute Assessment and Plan: Unilateral large right pleural effusion with associated compressive lobar atelectasis and she is s/p ultrasound guided thoracentesis today. pH is normal at 7.447. Fluid was cloudy yellow. Pleural RBC is 314 and 167 nucleated cells. Pleural protein, albumin, LDH, and glucose are pending. The patient reports a hx of right sided pleural effusion. Possibly secondary to cirrhosis Await additional studies but preliminary findings appear transudative Will order echo to evaluate fo
--- NOTE | 2020-06-25 10:46 | P.PNNP_ITS ---
Progress Note: A&P Assessment and Plan (1) End stage renal disease: Code(s): N18.6 - End stage renal disease Status: Acute Assessment and Plan: * normally does HD on // schedule * plan HD today to get her back on schedule * follow electrolytes, clearance, and volume status (2) Acute respiratory failure with hypoxia: Code(s): J96.01 - Acute respiratory failure with hypoxia Status: Acute Assessment and Plan: * presumably due to a combination of COVID-19 + pleural effusion * on decadron but remdesivir contraindicated given her ESRD * convalescent plasma needed(?) - respiratory status stable if not better * follow inflammatory markers (3) Altered mental status: Code(s): R41.82 - Altered mental status, unspecified Status: Acute Assessment and Plan: * acute change versus chronic issue? (however, she recognized me even though I have not seen her in several years) * related to acute medical issues(?) - hypoxia, COVID-19, missed HD treatment yesterday?? * mentation appears to be doing well in the last 24 hours (4) Pleural effusion on right: Code(s): J90 - Pleural effusion, not elsewhere classified Status: Acute Assessment and Plan: * acute or chronic? etiology? * thoracentesis today * follow-up on fluid analysis (5) Hypertension: Code(s): I10 - Essential (primary) hypertension Status: Acute Assessment and Plan: * reasonable control * follow hemodynamics * medications may need adjustment (6) Ankle fracture, left: Code(s): S82.892A - Other fracture of left lower leg, initial encounter for closed fracture Status: Acute Assessment and Plan: * cast in place * follow-up with outpatient Orthopedics (7) Diabetes: Code(s): E11.9 - Type 2 diabetes mellitus without complications Status: Acute Assessment and Plan: * follow accuchecks * glycemic control Will continue to follow. Subjective Date/time seen: 06/25/20 10:46 Mentation seems to be doing reasonably well at the time of my visit; about to leave for radiology for planned thoracentesis; breathing/respiratory status also seems to be doing better; no new issues or problems voiced at this time; no apparent distress to report. Exam Narrative: Exam Narrative: General: WD/WN female in NAD Heart: normal S1 and S2; no rub Lungs: decreased breath sounds at bases R>L Abdomen: soft, nontender, nondistended, positive bowel sounds Extremities: no cyanosis or clubbing; no edema; cast in place Skin: warm and dry Objective Data Intake/Output Intake/Output: Intake & Output 06/23/20 06/24/20 23:59 23:59 Intake Total 550 Output Total 1000 Balance -450 Meds/Results Medications: Active Medications Generic Name Dose Route Start Last Admin Trade Name Freq PRN Reason Stop Dose Admin Acetaminophen 650 mg 06/26/20 12:31 Acetaminophen 325 Mg Tablet PO Q4H PRN Mild Pain (1-3) or Fever Albuterol 2 puff 06/24/20 11:14 Albuterol Sulfate (*Sp) Aerosol 1 Puff INHALATION QIDRT PRN Shortness Of Breath Amlodipine Besylate 10 mg 06/24/20 09:00 06/26/20 09:06 Amlodipine Besylate 5 Mg Tablet PO 10 mg DAILY JANET Administration Carvedilol 12.5 mg 06/23/20 21:00 06/01
--- NOTE | 2020-06-25 10:46 | PM.PNNEP ---
Progress Note: A&P Assessment and Plan (1) End stage renal disease: Code(s): N18.6 - End stage renal disease Status: Acute Assessment and Plan: normally does HD on // schedule plan HD today to get her back on schedule follow electrolytes, clearance, and volume status (2) Acute respiratory failure with hypoxia: Code(s): J96.01 - Acute respiratory failure with hypoxia Status: Acute Assessment and Plan: presumably due to a combination of COVID-19 + pleural effusion on decadron but remdesivir contraindicated given her ESRD convalescent plasma needed(?) - respiratory status stable if not better follow inflammatory markers (3) Altered mental status: Code(s): R41.82 - Altered mental status, unspecified Status: Acute Assessment and Plan: acute change versus chronic issue? (however, she recognized me even though I have not seen her in several years) related to acute medical issues(?) - hypoxia, COVID-19, missed HD treatment yesterday?? mentation appears to be doing well in the last 24 hours (4) Pleural effusion on right: Code(s): J90 - Pleural effusion, not elsewhere classified Status: Acute Assessment and Plan: acute or chronic? etiology? thoracentesis today follow-up on fluid analysis (5) Hypertension: Code(s): I10 - Essential (primary) hypertension Status: Acute Assessment and Plan: reasonable control follow hemodynamics medications may need adjustment (6) Ankle fracture, left: Code(s): S82.892A - Other fracture of left lower leg, initial encounter for closed fracture Status: Acute Assessment and Plan: cast in place follow-up with outpatient Orthopedics (7) Diabetes: Code(s): E11.9 - Type 2 diabetes mellitus without complications Status: Acute Assessment and Plan: follow accuchecks glycemic control Will continue to follow. Subjective Date/time seen: 06/25/20 10:46 Mentation seems to be doing reasonably well at the time of my visit; about to leave for radiology for planned thoracentesis; breathing/respiratory status also seems to be doing better; no new issues or problems voiced at this time; no apparent distress to report. Exam Narrative: Exam Narrative: General: WD/WN female in NAD Heart: normal S1 and S2; no rub Lungs: decreased breath sounds at bases R>L Abdomen: soft, nontender, nondistended, positive bowel sounds Extremities: no cyanosis or clubbing; no edema; cast in place Skin: warm and dry Objective Data Intake/Output Intake/Output: Intake & Output 06/23/20 06/24/20 23:59 23:59 Intake Total 550 Output Total 1000 Balance -450 Meds/Results Medications: Active Medications Generic Name Dose Route Start Last Admin Trade Name Freq PRN Reason Stop Dose Admin Acetaminophen 650 mg 06/26/20 12:31 Acetaminophen 325 Mg Tablet PO Q4H PRN Mild Pain (1-3) or Fever Albuterol 2 puff 06/24/20 11:14 Albuterol Sulfate (*Sp) Aerosol 1 Puff INHALATION QIDRT PRN Shortness Of Breath Amlodipine Besylate 10 mg 06/24/20 09:00 06/26/20 09:06 Amlodipine Besylate 5 Mg Tablet PO 10 mg DAILY JANET Administration Carvedilol 12.5 mg 06/23/20 21:00 06/26/20 09:05 Carvedilol 12.5 Mg Tablet PO 12.5 mg Q12HR JANET Administration Citalopram Hydrobromide 20 mg 06/24/20 09:00 06/26/20 09:05 Citalopram Hydrobromide 20 Mg Tablet PO 20 mg DAILY JANET Administration Dexamethasone Sodium Phosphate 6 mg 06/23/20 18:30 06/26/20 09:06 Dexamethasone Sod Phos Inj 4 Mg/Ml Vial IV PUSH 07/02/20 09:01 6 mg DAILY JANET Administration Dextrose 12.5 gm 06/23/20 19:08 06/23/20 20:14 Dextrose 50% 25 Gm/50 Ml Syringe IV PUSH 12.5 gm PRN PRN Administration Hypoglycemia Protocol Dornase Danny 2.5 mg 06/25/20 20:00 06/26/20 08:32 Dornase Danny Inh Soln 1 Mg/Ml 2.5 Ml Amp INH
[2020-06-25 11:56] LABS: pH Pleural Fluid 7.447 (7.210-7.500)
[2020-06-25 12:12] LABS: Ferritin > 2000.00 ng/mL (11.1-264)
[2020-06-25 12:18] LABS: Glucose Point of Care 103 (65-105)
[2020-06-25 12:33] LABS: Appearance Pleural Fluid Cloudy (Clear); Color Pleural Fluid Yellow (Colorless); Pleural fluid source Pleural fluid
[2020-06-25 12:34] LABS: Nucleated Cell Pleural Fluid 167 /uL (0-1000); RBC Pleural Fluid 314 /uL (0-0)
[2020-06-25 13:50] LABS: Macrophages Pleural Fluid 89 %; Mesothelial Cells Pleural Flui 6 %
[2020-06-25 13:51] LABS: Lymphocytes Pleural Fluid 5 %
[2020-06-25] MEDS: SEVELAMER CARBONATE 800 MG TABLET 1600 MG PO (17:40)
[2020-06-25] MEDS: DORNASE ALFA INH SOLN 1 MG/ML 2.5 ML AMP 2.5 MG INHALATION (20:44)
[2020-06-26] VITALS (27 sets, daily range): BP systolic 135–199; BP diastolic 44–82; PULSE 64–78; RESP 16–22; TEMP 36–37.1; O2SAT 92–98
--- NOTE | 2020-06-26 | ECHO_ITS ---
Patient Info Name: Allyson Franks Age: 65 years : 1955 Gender: Female Ht: 63 in Wt: 179 lbs BSA: 1.93 m2 HR: 78 bpm BP: 134 / 44 mmHg Heart Rhythm: Sinus Rhythm Technical Quality: Good Exam Date: 06/26/2020 1:00 PM Exam Location: [facility] Pulmonary Exam Room: 214 Patient Status: Inpatient Admit Date: 06/23/2020 Staff Ordering Physician: Ceci Comer PA-C Cushion Gum Applicator: Kristin Arvizu RDCS Attending Provider: Ceci Comer PA-C Referring Physician: Souleymane BOWLES; Exam Type: CA echo doppler color flow Study Info Indications - right side pleural effusion cirrhosis esrd on hd Complete two-dimensional, color flow and Doppler transthoracic echocardiogram is performed. Summary 1. Complete two-dimensional, color flow and Doppler transthoracic echocardiogram is performed. 2. Left ventricular systolic function is normal, estimated at 60-65%. 3. There is no increased left ventricular wall thickness. 4. The left ventricular diastolic function is grade II diastolic dysfunction. 5. Left atrial chamber dimension is moderately enlarged. 6. There is mild aortic valve stenosis with a peak velocity of 239 cm/s, mean gradient of 11 mmHg, and aortic valve area of 1.9 cm2. 7. There is mild mitral valve regurgitation. 8. There is mild tricuspid valve regurgitation. 9. Mild pulmonary hypertension, estimated pulmonary arterial systolic pressure is 44 mmHg. 10. Right pleural effusion with compressive atelectasis. Left Ventricle Left ventricular chamber dimension is normal. Left ventricular systolic function is normal, estimated at 60-65%. There is no increased left ventricular wall thickness. The left ventricular diastolic function is grade II diastolic dysfunction. Right Ventricle Right ventricular chamber dimension is normal. Right ventricular systolic function is normal. Left Atria Left atrial chamber dimension is moderately enlarged. Right Atria Right atrial chamber dimension is normal. Aortic Valve The aortic valve is probable trileaflet. There is mild aortic valve stenosis with a peak velocity of 239 cm/s, mean gradient of 11 mmHg, and aortic valve area of 1.9 cm2. There is no aortic valve regurgitation. There is mild aortic valve calcification. Pulmonic Valve The pulmonic valve is not well visualized. There is mild pulmonic regurgitation. Mitral Valve The mitral valve has thickened leaflets. There is mild mitral valve regurgitation. The mitral valve annulus is mildly calcified. Tricuspid Valve The tricuspid valve leaflets are normal. There is mild tricuspid valve regurgitation. Mild pulmonary hypertension, estimated pulmonary arterial systolic pressure is 44 mmHg. Pericardium/Pleural The pericardium appears normal. There is trivial pericardial effusion. Right pleural effusion with compressive atelectasis. Inferior Vena Cava Normal inferior vena cava with >50% collapse upon inspiration consistent with normal right atrial pressure, 5 mmHg. Aorta The aortic root size at the sinus of Valsalva is normal. There is mild aortic atherosclerosis. Left Ventricular Outflow Tract Name Value Normal LVOT 2D LVOT Diameter 2.0 cm L
[2020-06-26 04:55] LABS: Hemoglobin 8.5 g/dL (12.0-15.0); Immature Granulocyte Absolute 0.12 K/mm3 (0.00-0.031); Immature Granulocyte Percent A 2.7 % (0-0.5); Lymphocytes Absolute Auto 0.27 K/mm3 (0.9-3.2); Lymphocytes Percent Auto 6.2 % (18.3-44.2); Mean Corpuscular Volume 91.2 fl (80-100); Mean Platelet Volume 10.6 fl (7.4-10.4); Monocytes Absolute Auto 0.3 K/mm3 (0.1-0.6); Monocytes Percent Auto 6.2 % (2.6-8.5); Neutrophils Absolute Auto 3.7 K/mm3 (1.3-6.7); Neutrophils Percent Auto 84.9 % (45.5-73.1); Platelet Count Result 130 k/mm3 (150-375); Red Blood Count 2.74 M/mm3 (4.2-5.4); Red Cell Distribution Width 13.6 % (11.5-14.5); White Blood Count 4.4 K/mm3 (4.5-10.0)
[2020-06-26 05:11] LABS: Anion Gap 7 mmol/L (8-16); Blood Urea Nitrogen 52 mg/dL (7-17); CRP 7.6 mg/dL (<1.0); Calcium 8.7 mg/dL (8.4-10.2); Carbon Dioxide 28 mmol/L (22-30); Chloride 93 mmol/L (98-107); Estimated CRCL calculation 9 ml/min; Estimated Glomerular Filt Rate 7; Glucose 147 mg/dL (65-105); Lactate Dehydrogenase 575 U/L (313-618); Magnesium 2.1 mg/dL (1.6-2.3); Sodium 128 mmol/L (137-145)
[2020-06-26] MEDS: DORNASE ALFA INH SOLN 1 MG/ML 2.5 ML AMP 2.5 MG INHALATION (08:32)
[2020-06-26 08:48] LABS: Ferritin > 2000.00 ng/mL (11.1-264)
[2020-06-26] MEDS: polyethylene glycoL 3350 17 GM POWD.PACK PO (09:03)
[2020-06-26] MEDS: SALINE 0.65% NAS SOLN 44 ML BTL 2 SPRAY NASAL (09:03)
[2020-06-26] MEDS: guaiFENesin 12 HR 600 MG TABCR 1200 MG PO ×2 (09:04→21:02)
[2020-06-26] MEDS: SIMVASTATIN 20 MG TABLET PO (09:04)
[2020-06-26] MEDS: lisinopriL 20 MG TABLET 40 MG PO (09:05)
[2020-06-26] MEDS: carvediloL 12.5 MG TABLET PO ×2 (09:05→21:08)
[2020-06-26] MEDS: CITALOPRAM HYDROBROMIDE 20 MG TABLET PO (09:05)
[2020-06-26] MEDS: DEXAMETHASONE SOD PHOS INJ 4 MG/ML VIAL 6 MG IV PUSH (09:06)
[2020-06-26] MEDS: amLODIPine BESYLATE 5 MG TABLET 10 MG PO (09:06)
--- NOTE | 2020-06-26 11:52 | PM.CNGS ---
Assessment and Plan Assessment and plan (1) Gallbladder polyp: Code(s): K82.4 - Cholesterolosis of gallbladder Status: Acute Assessment and Plan: 7 mm on U/S, given asymptomatology and multiple comorbid conditions, would hold off on surgery, will need repeat U/S in 6 mos, cont f/u c me as outpt (2) Cirrhosis: Code(s): K74.60 - Unspecified cirrhosis of liver Status: Acute Assessment and Plan: ? etiology, workup per GI as outpt (3) End stage renal disease: Code(s): N18.6 - End stage renal disease Status: Acute Assessment and Plan: cont HD per nephrology (4) COVID-19: Code(s): U07.1 - COVID-19 Status: Acute Assessment and Plan: supportive mgmt (5) Diabetes: Code(s): E11.9 - Type 2 diabetes mellitus without complications Status: Acute Assessment and Plan: cont current mgmt History of Present Illness Consult details Consult date: 06/26/20 Reason for consult: other (GB polyps) Requesting physician: Ceci Comer PA-C Narrative: Pt is a 65 y/o F c multiple med issues including ESRD, DM presenting c respiratory failure secondary to COVID infection. Pt being treated and incidentally noted to have elevated LFTs. Pt c subsequent imaging suggesting cirrhosis and GB polyps. Pt reports no abd pain. Pt jeremiah renal diet and having normal bowel fxn. Review of Systems Constitutional: Constitutional: Denies anorexia, Denies chills, Reports fatigue, Denies fever(s), Denies increased appetite, Reports lethargy, Reports malaise, Denies night sweats, Denies poor appetite, Reports weakness, Denies weight gain and Denies weight loss Eyes: Eyes: Reports no additional eye complaints ENT: Reports system reviewed and no additional complaints, except as documented Cardiovascular: Cardiovascular: Reports no additional cardiovascular complaints Respiratory: Respiratory: Reports cough, Reports dyspnea and Reports dyspnea on exertion Gastrointestinal: Gastrointestinal: Reports no additional gastrointestinal complaints Genitourinary: Genitourinary: Reports no additional female genitourinary complaints Musculoskeletal: Musculoskeletal: Reports no additional musculoskeletal complaints Integumentary/Breasts: Skin/Breast: Reports system reviewed and no additional complaints, except as docu Neurologic: Reports system reviewed and no additional complaints, except as documented Psychiatric: Psychiatric: Reports no additional psychiatric complaints PMFSH Past Medical History Medical History Anemia of chronic disease COVID-19 Depression Diabetic neuropathy Diabetic retinopathy End-stage renal disease on hemodialysis Hyperlipidemia Hypertension Insulin dependent type 2 diabetes mellitus Surgical History Surgical History Status post creation of arteriovenous fistula Family History Family History Mother Hypertension Cerebrovascular accident Diabetes mellitus Heart disease Kidney disease Father Cerebrovascular accident CAD (coronary artery disease) Hypertension Diabetes mellitus Social History Social History Social History: Surrogate decision maker: Art Olsen, brother. Code status: Full code. Smoking packs per day: 2 Smoking cigarettes per day: 40.0 Years smoked: 10 Smoking pack-years: 20.00 Smoking status: Former smoker Tobacco type: cigarettes Additional living arrangements comments: Lives in [place]. Currently at [facility]. 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 Gender identity (if verbalized by the patient): Female Spiritual care concerns: No Meds Home Medications and Allergies Home Medications Medicatio
--- NOTE | 2020-06-26 12:34 | PM.PNNEP ---
Progress Note: A&P Assessment and Plan (1) End stage renal disease: Code(s): N18.6 - End stage renal disease Status: Acute Assessment and Plan: normally does HD on // schedule HD today since she did not want to do dialysis yesterday due being tired. follow electrolytes, clearance, and volume status (2) Acute respiratory failure with hypoxia: Code(s): J96.01 - Acute respiratory failure with hypoxia Status: Acute Assessment and Plan: presumably due to a combination of COVID-19 + pleural effusion on decadron but remdesivir contraindicated given her ESRD convalescent plasma ordered but held given improvement in respiratory status follow inflammatory markers (3) Altered mental status: Code(s): R41.82 - Altered mental status, unspecified Status: Acute Assessment and Plan: better acute change versus chronic issue? (however, she recognized me even though I have not seen her in several years) related to acute medical issues(?) - hypoxia, COVID-19, missed HD treatment yesterday?? mentation appears to stable in the last 24 - 48 hours (4) Pleural effusion on right: Code(s): J90 - Pleural effusion, not elsewhere classified Status: Acute Assessment and Plan: acute or chronic? s/p thoracentesis improvement in respiratory status partly secondary to thoracentesis(?) (5) Hypertension: Code(s): I10 - Essential (primary) hypertension Status: Acute Assessment and Plan: reasonable control follow hemodynamics post-HD (6) Ankle fracture, left: Code(s): S82.892A - Other fracture of left lower leg, initial encounter for closed fracture Status: Acute Assessment and Plan: cast in place follow-up with outpatient Orthopedics (7) Diabetes: Code(s): E11.9 - Type 2 diabetes mellitus without complications Status: Acute Assessment and Plan: follow accuchecks glycemic control Will continue to follow. Subjective Date/time seen: 06/26/20 12:34 Tolerating dialysis at the time of my visit (seen on HD ~ 11:50AM); mentation seems stable if not better at this time; tolerated thoracentesis yesterday without any issues; breathing also seems to have improved as well; no apparent distress voiced. Exam Narrative: Exam Narrative: General: WD/WN female in NAD Heart: normal S1 and S2; no rub Lungs: clear anteriorly Abdomen: soft, nontender, nondistended, positive bowel sounds Extremities: no cyanosis or clubbing; no edema; cast in place Skin: warm and dry Objective Data Vital Signs Vital Signs: Vital Signs Temp Pulse Resp BP Pulse Ox 06/26/20 10:00 66 06/26/20 09:05 78 06/26/20 08:32 69 18 92 06/26/20 08:00 65 92 06/26/20 07:59 36.6 C 67 22 H 145/62 H 95 06/26/20 06:00 65 06/26/20 04:00 36.2 C L 72 20 138/44 L 98 06/26/20 02:00 70 06/26/20 00:00 36.2 C L 69 18 135/70 98 06/25/20 22:00 70 06/25/20 21:29 70 06/25/20 20:45 79 24 H 93 06/25/20 20:44 77 24 H 06/25/20 20:00 68 95 06/25/20 18:27 37.1 C 73 22 H 144/42 H 95 06/25/20 18:00 71 06/25/20 16:00 37.0 C 68 20 124/97 H 97 06/25/20 14:00 74 Intake/Output Intake/Output: Intake & Output 06/23/20 06/24/20 06/25/20 06/26/20 23:59 23:59 23:59 23:59 Intake Total 550 900 Output Total 1000 1000 Balance -450 -100 Meds/Results Medications: Active Medications Generic Name Dose Route Start Last Admin Trade Name Frac[place] PRN Reason Stop Dose Admin Acetaminophen 650 mg 06/26/20 12:31 Acetaminophen 325 Mg Tablet PO Q4H PRN Mild Pain (1-3) or Fever Albuterol 2 puff 06/24/20 11:14 Albuterol Sulfate (*Sp) Aerosol 1 Puff INHALATION QIDRT PRN Shortness Of Breath Amlodipine Besylate 10 mg 06/24/20 09:00 06/26/20 09:06 Amlodipine Besylate 5 Mg Tablet PO 10 mg DAILY [facility]
[2020-06-26] MEDS: ACETAMINOPHEN 325 MG TABLET 650 MG PO ×2 (12:45→21:02)
--- NOTE | 2020-06-26 14:10 | PM.IMPN ---
Progress Note: A&P Assessment and Plan (1) Acute respiratory failure with hypoxia: Code(s): J96.01 - Acute respiratory failure with hypoxia Status: Acute Assessment and Plan: Resolved. Likely secondary to COVID-19 (tested on 06/17/20 and results available 06/22/20) vs. fluid overload and moderate right pleural effusion. Chest CTA ordered due to elevated D-dimer, recent immobility, and left ankle fracture and negative for pulmonary embolism but did show large right pleural effusion with adjacent compressive lobar atelectasis and multifocal left lower lobe pneumonia. She was previously on BiPAP and was weaned to room air. Continue supplemental oxygen with goal oxygen saturation >90%, wean as tolerated Respiratory therapy following with input appreciated Further treatment per plan below Will transfer out of the IMU given significant improvement with hopeful discharge tomorrow if she does well overnight pending echo results. (2) COVID-19: Code(s): U07.1 - COVID-19 Status: Acute Assessment and Plan: She tested positive on 06/17/20 and results were available 06/22/20. She was noted to be hypoxic at hemodialysis. Chest CXR demonstrated opacities in the bilateral lower lung zones. She was on BiPAP initially and was weaned to room air. CRP is improving. She is not a candidate for remdesivir due to ESRD on HD Continue dexamethasone (initiated 06/23) Convalescent plasma was considered but she was weaned to room air. May consider if her respiratory status worsens but she has improved significantly at this time. Continue supportive care with tylenol as needed for fever, PEP therapy, expectorant, and bronchodilator as needed Trend acute phase reactants (3) Cirrhosis: Code(s): K74.60 - Unspecified cirrhosis of liver Status: Acute Assessment and Plan: Chest CTA suggested cirrhosis and RUQ US further confirms coarsened echotexture and mild surface nodularity consistent with cirrhosis and splenomegaly suggesting portal venous hypertension. Hepatitis panel is negative. She reports no hx of alcohol use. Plan for outpatient follow-up with referral to GI Echo ordered and pending to evaluate for right sided heart failure (4) Lethargy: Code(s): R53.83 - Other fatigue Status: Resolved Assessment and Plan: Resolved. Mentation is at baseline. Per reports, she was disoriented while at the rehab facility and was confused on admission to our facility but has returned to baseline. Confusion on admission was likely secondary to hypoxia as CT brain was unremarkable and ABG without any significant hypercapnia. Respiratory status is much better. Lethargy may have also been secondary to uremia and she is much better today following dialysis. Ammonia is <9. Vitamin B12 and folate are sufficient. Hold gabapentin and baclofen for now as this can be sedating and avoid any further sedatives (5) End-stage renal disease on hemodialysis: Code(s): N18.6 - End stage renal disease; Z99.2 - Dependence on renal dialysis Status: Acute Assessment and Plan: She dialyzes on a M,W,F schedule. She received dialysis today. Nephrology consulted to maintain hemodialysis while inpatient Monitor electrolytes closely with renal function panel daily (6) Pleural effusion on right: Code(s): J90 - Pleural effusion, not elsewhere classified Status: Acute Assessment and Plan: Unilateral large right pleural effusion with associated compressive lobar atelectasis and she is s/p ultrasound guided thoracentesis today. pH is normal at 7.447. Fluid was cloudy yellow. Pleural RBC is 314 and 167 nucleated cells. Pleural protein, albumin, LDH, and glucose are pending. The patient reports a hx of right sided pleural effusion. Possibly secondary to cirrhosis Await additional studies which are pending but preliminary findings appear transudative Echo ordere
--- NOTE | 2020-06-26 15:31 | PCPTNOTE ---
Patient declined PT this afternoon. Patient states I am so tired. Please come back tomorrow. PT will continue to follow per plan of care.
--- NOTE | 2020-06-26 19:00 | PC.NURSE ---
This patient, Allyson Franks, was received from [IMU] on 06/26/20 at 1900. Patient/family oriented to unit policies and routines
--- NOTE | 2020-06-26 19:19 | PC.NURSE ---
This patient, Allyson Franks, was transferred to [ [facility]] on 06/26/20 at 1900. Personal belongings sent with patient. Report given to [Maddie ]. Appropriate documentation sent with patient.
[2020-06-26] MEDS: HEPARIN SODIUM 5,000 UNITS/ML VIAL 5000 UNITS SUB-Q (21:03)
[2020-06-26] MEDS: MELATONIN 3 MG TABLET PO (23:50)
[2020-06-27] VITALS (12 sets, daily range): BP systolic 146–168; BP diastolic 46–57; PULSE 65–82; RESP 18–20; TEMP 36.3–37.5; O2SAT 90–94
[2020-06-27] MEDS: ACETAMINOPHEN 325 MG TABLET 650 MG PO (05:12)
[2020-06-27 06:26] LABS: Hematocrit 26.4 % (37.0-47.0); Hemoglobin 8.9 g/dL (12.0-15.0); Immature Granulocyte Absolute 0.15 K/mm3 (0.00-0.031); Immature Granulocyte Percent A 2.3 % (0-0.5); Immature Platelet Fraction Pct 6.1 % (0.9-11.2); Lymphocytes Absolute Auto 0.29 K/mm3 (0.9-3.2); Lymphocytes Percent Auto 4.5 % (18.3-44.2); Mean Corpuscular HGB Conc 33.7 g/dl (32-36); Mean Corpuscular Hemoglobin 31.4 pg (26-34); Mean Corpuscular Volume 93.3 fl (80-100); Monocytes Absolute Auto 0.3 K/mm3 (0.1-0.6); Monocytes Percent Auto 4.8 % (2.6-8.5); Neutrophils Absolute Auto 5.8 K/mm3 (1.3-6.7); Neutrophils Percent Auto 88.4 % (45.5-73.1); Platelet Count Result 144 k/mm3 (150-375); Red Blood Count 2.83 M/mm3 (4.2-5.4); Red Cell Distribution Width 14.2 % (11.5-14.5); White Blood Count 6.5 K/mm3 (4.5-10.0)
[2020-06-27 07:00] LABS: Ovalocytes 1+ (NORMAL); Platelet Estimate Adequate (Adequate)
[2020-06-27 07:19] LABS: Anion Gap 6 mmol/L (8-16); Blood Urea Nitrogen 32 mg/dL (7-17); CRP 6.5 mg/dL (<1.0); Calcium 8.6 mg/dL (8.4-10.2); Carbon Dioxide 30 mmol/L (22-30); Chloride 94 mmol/L (98-107); Creatine Kinase < 20 U/L (30-135); Estimated CRCL calculation 14 ml/min; Estimated Glomerular Filt Rate 12; Glucose 126 mg/dL (65-105); Lactate Dehydrogenase 680 U/L (313-618); Potassium 3.9 mmol/L (3.4-5.0); Sodium 130 mmol/L (137-145)
[2020-06-27 08:40] LABS: Ferritin > 2000.00 ng/mL (11.1-264)
[2020-06-27] MEDS: DEXAMETHASONE SOD PHOS INJ 4 MG/ML VIAL 6 MG IV PUSH (08:57)
[2020-06-27] MEDS: guaiFENesin 12 HR 600 MG TABCR 1200 MG PO ×2 (08:58→20:35)
[2020-06-27] MEDS: lisinopriL 20 MG TABLET 40 MG PO (08:58)
[2020-06-27] MEDS: SIMVASTATIN 20 MG TABLET PO (08:58)
[2020-06-27] MEDS: SENNOSIDES 8.6 MG TABLET PO (08:59)
[2020-06-27] MEDS: polyethylene glycoL 3350 17 GM POWD.PACK PO (08:59)
[2020-06-27] MEDS: SALINE 0.65% NAS SOLN 44 ML BTL 2 SPRAY NASAL (08:59)
[2020-06-27] MEDS: SEVELAMER CARBONATE 800 MG TABLET 1600 MG PO (08:59)
[2020-06-27] MEDS: amLODIPine BESYLATE 5 MG TABLET 10 MG PO (08:59)
[2020-06-27] MEDS: carvediloL 12.5 MG TABLET PO ×2 (09:00→20:35)
[2020-06-27] MEDS: CITALOPRAM HYDROBROMIDE 20 MG TABLET PO (09:02)
[2020-06-27 09:37] LABS: Glucose Point of Care 111 (65-105)
[2020-06-27] MEDS: GABAPENTIN 300 MG CAPSULE PO (12:03)
[2020-06-27] MEDS: HEPARIN SODIUM 5,000 UNITS/ML VIAL 5000 UNITS SUB-Q ×2 (12:04→20:35)
--- NOTE | 2020-06-27 14:17 | PM.PNNEP ---
Progress Note: A&P Assessment and Plan (1) End stage renal disease: Code(s): N18.6 - End stage renal disease Status: Acute Assessment and Plan: normally does HD on // schedule plan HD tomorrow to get her back on her usual schedule follow electrolytes, clearance, and volume status (2) Acute respiratory failure with hypoxia: Code(s): J96.01 - Acute respiratory failure with hypoxia Status: Acute Assessment and Plan: presumably due to a combination of COVID-19 + pleural effusion on decadron but remdesivir contraindicated given her ESRD convalescent plasma ordered but held given improvement in respiratory status follow inflammatory markers CXR noted -- will try to be more aggressive with fluid removal during dialysis treatments (3) Altered mental status: Code(s): R41.82 - Altered mental status, unspecified Status: Acute Assessment and Plan: better acute change versus chronic issue? (however, she recognized me even though I have not seen her in several years) related to acute medical issues(?) - hypoxia, COVID-19, missed HD treatment yesterday?? mentation appears to stable in the last 24 - 48 hours (4) Pleural effusion on right: Code(s): J90 - Pleural effusion, not elsewhere classified Status: Acute Assessment and Plan: acute or chronic? s/p thoracentesis - appears transudative (from cirrhosis?) improvement in respiratory status partly secondary to thoracentesis(?) Echo pending (5) Hypertension: Code(s): I10 - Essential (primary) hypertension Status: Acute Assessment and Plan: reasonable control follow hemodynamics post-HD (6) Ankle fracture, left: Code(s): S82.892A - Other fracture of left lower leg, initial encounter for closed fracture Status: Acute Assessment and Plan: cast in place follow-up with outpatient Orthopedics (7) Diabetes: Code(s): E11.9 - Type 2 diabetes mellitus without complications Status: Acute Assessment and Plan: follow accuchecks glycemic control Will continue to follow. Subjective Date/time seen: 06/27/20 14:17 Tolerated dialysis yesterday without any issue or problems; respiratory status (in spite of CXR results) as well as mentation seem to be doing quite well at this time; no apparent distress noted. Exam Narrative: Exam Narrative: General: WD/WN female in NAD Heart: normal S1 and S2; no rub Lungs: decreased breath sounds at bases R.L Abdomen: soft, nontender, nondistended, positive bowel sounds Extremities: no cyanosis or clubbing; no edema; cast in place Skin: warm and intact Objective Data Vital Signs Vital Signs: Vital Signs Temp Pulse Resp BP Pulse Ox 06/27/20 12:00 36.4 C 70 20 168/53 H 90 06/27/20 09:00 72 06/27/20 08:42 72 18 06/27/20 08:32 70 18 93 06/27/20 08:00 36.4 C 72 18 153/54 H 93 06/27/20 04:00 37.3 C 73 20 146/57 H 91 06/27/20 00:00 37.5 C 65 20 147/55 H 91 06/26/20 20:00 36.6 C 70 16 150/47 H 92 Intake/Output Intake/Output: Intake & Output 06/24/20 06/25/20 06/26/20 06/27/20 23:59 23:59 23:59 23:59 Intake Total 550 900 370 420 Output Total 1000 1000 1400 0 Balance -450 -100 -1030 420 Meds/Results Medications: Active Medications Generic Name Dose Route Start Last Admin Trade Name Freq PRN Reason Stop Dose Admin Acetaminophen 650 mg 06/26/20 12:31 06/27/20 05:12 Acetaminophen 325 Mg Tablet PO 650 mg Q4H PRN Administration Mild Pain (1-3) or Fever Albuterol 2 puff 06/24/20 11:14 Albuterol Sulfate (*Sp) Aerosol 1 Puff INHALATION QIDRT PRN Shortness Of Breath Amlodipine Besylate 10 mg 06/24/20 09:00 06/27/20 08:59 Amlodipine Besylate 5 Mg Tablet PO 10 mg DAILY JANET Administration Carvedilol 12.5 mg 06/23/20 21:00 06/27/20 09:00 Carvedilol 12.5 Mg Tablet PO 12.5 mg Q12HR
--- NOTE | 2020-06-27 14:17 | P.PNNP_ITS ---
Progress Note: A&P Assessment and Plan (1) End stage renal disease: Code(s): N18.6 - End stage renal disease Status: Acute Assessment and Plan: * normally does HD on // schedule * plan HD tomorrow to get her back on her usual schedule * follow electrolytes, clearance, and volume status (2) Acute respiratory failure with hypoxia: Code(s): J96.01 - Acute respiratory failure with hypoxia Status: Acute Assessment and Plan: * presumably due to a combination of COVID-19 + pleural effusion * on decadron but remdesivir contraindicated given her ESRD * convalescent plasma ordered but held given improvement in respiratory status * follow inflammatory markers * CXR noted -- will try to be more aggressive with fluid removal during dialysis treatments (3) Altered mental status: Code(s): R41.82 - Altered mental status, unspecified Status: Acute Assessment and Plan: * better * acute change versus chronic issue? (however, she recognized me even though I have not seen her in several years) * related to acute medical issues(?) - hypoxia, COVID-19, missed HD treatment yesterday?? * mentation appears to stable in the last 24 - 48 hours (4) Pleural effusion on right: Code(s): J90 - Pleural effusion, not elsewhere classified Status: Acute Assessment and Plan: * acute or chronic? * s/p thoracentesis - appears transudative (from cirrhosis?) * improvement in respiratory status partly secondary to thoracentesis(?) * Echo pending (5) Hypertension: Code(s): I10 - Essential (primary) hypertension Status: Acute Assessment and Plan: * reasonable control * follow hemodynamics post-HD (6) Ankle fracture, left: Code(s): S82.892A - Other fracture of left lower leg, initial encounter for closed fracture Status: Acute Assessment and Plan: * cast in place * follow-up with outpatient Orthopedics (7) Diabetes: Code(s): E11.9 - Type 2 diabetes mellitus without complications Status: Acute Assessment and Plan: * follow accuchecks * glycemic control Will continue to follow. Subjective Date/time seen: 06/27/20 14:17 Tolerated dialysis yesterday without any issue or problems; respiratory status (in spite of CXR results) as well as mentation seem to be doing quite well at this time; no apparent distress noted. Exam Narrative: Exam Narrative: General: WD/WN female in NAD Heart: normal S1 and S2; no rub Lungs: decreased breath sounds at bases R.L Abdomen: soft, nontender, nondistended, positive bowel sounds Extremities: no cyanosis or clubbing; no edema; cast in place Skin: warm and intact Objective Data Vital Signs Vital Signs: Vital Signs Temp Pulse Resp BP Pulse Ox 06/27/20 12:00 36.4 C 70 20 168/53 H 90 06/27/20 09:00 72 06/27/20 08:42 72 18 06/27/20 08:32 70 18 93 06/27/20 08:00 36.4 C 72 18 153/54 H 93 06/27/20 04:00 37.3 C 73 20 146/57 H 91 06/27/20 00:00 37.5 C 65 20 147/55 H 91 06/26/20 20:00 36.6 C 70 16 150/47 H 92 Intake/Output Intake/Output: Intake & Output 06/24/20 06/25/20 06/26/20 06/27/20 23:59 23:59 23:59 23:59 Intake Total 550 900 370 420 Output Total 1000 1000 1400 0 Balance -450 -100 -1030 420
--- NOTE | 2020-06-27 14:27 | PCPTNOTE ---
Patient approached for therapy after switching rooms from IMU up to [facility]. Asked about participating in therapy and patient declined stating she is nauseas and her stomach is hard as a rock. RN present and aware of refusal. Will attempt to get up to chair tomorrow.
--- NOTE | 2020-06-27 16:42 | PM.IMPN ---
Progress Note: A&P Assessment and Plan (1) Acute respiratory failure with hypoxia: Code(s): J96.01 - Acute respiratory failure with hypoxia Status: Acute Assessment and Plan: Likely multifactorial secondary to COVID-19 (tested on 06/17/20 and results available 06/22/20) and fluid overload w/ moderate right pleural effusion. Chest CTA ordered due to elevated D-dimer, recent immobility, and left ankle fracture and negative for pulmonary embolism but did show large right pleural effusion with adjacent compressive lobar atelectasis and multifocal left lower lobe pneumonia and she is s/p thoracentesis. She was previously on BiPAP and was weaned to room air. She was placed on 2 liters per nasal cannula last night but is back to room air today. CXR repeated given oxygen requirement overnight and demonstrates increasing congestion and infiltrates. Continue supplemental oxygen with goal oxygen saturation >90%, wean as tolerated Respiratory therapy following with input appreciated Further treatment per plan below (2) COVID-19: Code(s): U07.1 - COVID-19 Status: Acute Assessment and Plan: She tested positive on 06/17/20 and results were available 06/22/20. She was noted to be hypoxic at hemodialysis. Chest CXR demonstrated opacities in the bilateral lower lung zones. She was on BiPAP initially and was weaned to room air. CRP is improving. Increased infiltrates on CXR. She is not a candidate for remdesivir due to ESRD on HD Continue dexamethasone (initiated 06/23) Convalescent plasma was considered but she was weaned to room air. May consider if her respiratory status worsens but she has improved significantly at this time. Continue supportive care with tylenol as needed for fever, PEP therapy, expectorant, and bronchodilator as needed Trend acute phase reactants (3) Cirrhosis: Code(s): K74.60 - Unspecified cirrhosis of liver Status: Acute Assessment and Plan: Chest CTA suggested cirrhosis and RUQ US further confirms coarsened echotexture and mild surface nodularity consistent with cirrhosis and splenomegaly suggesting portal venous hypertension. Hepatitis panel is negative. She reports no hx of alcohol use. Echo without right sided heart failure. Plan for outpatient follow-up with referral to GI for further workup (4) Lethargy: Code(s): R53.83 - Other fatigue Status: Resolved Assessment and Plan: Resolved. Mentation is at baseline. Per reports, she was disoriented while at the rehab facility and was confused on admission to our facility but has returned to baseline. Confusion on admission was likely secondary to hypoxia as CT brain was unremarkable and ABG without any significant hypercapnia. Respiratory status is much better. Lethargy may have also been secondary to uremia and she is much better today following dialysis. Ammonia is <9. Vitamin B12 and folate are sufficient. Hold gabapentin and baclofen for now as this can be sedating and avoid any further sedatives (5) End-stage renal disease on hemodialysis: Code(s): N18.6 - End stage renal disease; Z99.2 - Dependence on renal dialysis Status: Acute Assessment and Plan: She dialyzes on a M,W,F schedule. She received dialysis 06/26. Nephrology consulted to maintain hemodialysis while inpatient Monitor electrolytes closely with renal function panel daily (6) Pleural effusion on right: Code(s): J90 - Pleural effusion, not elsewhere classified Status: Acute Assessment and Plan: Appears to be a chronic issue as the patient reports she has had this in the past. Unilateral large right pleural effusion with associated compressive lobar atelectasis and she is s/p ultrasound guided thoracentesis today. pH is normal at 7.447. Fluid was cloudy yellow. Pleural RBC is 314 and 167 nucleated cells. Pleural protein, albumin, LDH, and glucose are pending. The patient re
[2020-06-27] MEDS: MELATONIN 3 MG TABLET PO (20:35)
[2020-06-27] MEDS: DORNASE ALFA INH SOLN 1 MG/ML 2.5 ML AMP 2.5 MG INHALATION (20:57)
[2020-06-28] VITALS (23 sets, daily range): BP systolic 128–168; BP diastolic 49–74; PULSE 64–77; RESP 16–20; TEMP 36.1–37; O2SAT 90–94
[2020-06-28 06:12] LABS: Hemoglobin 9.4 g/dL (12.0-15.0); Immature Platelet Fraction Pct 6.7 % (0.9-11.2); Mean Corpuscular HGB Conc 33.6 g/dl (32-36); Mean Corpuscular Hemoglobin 30.7 pg (26-34); Mean Corpuscular Volume 91.5 fl (80-100); Mean Platelet Volume 11.2 fl (7.4-10.4); Platelet Count Result 136 k/mm3 (150-375); Red Blood Count 3.06 M/mm3 (4.2-5.4); Red Cell Distribution Width 13.7 % (11.5-14.5); White Blood Count 8.3 K/mm3 (4.5-10.0)
[2020-06-28 06:26] LABS: Anion Gap 8 mmol/L (8-16); Blood Urea Nitrogen 48 mg/dL (7-17); Calcium 8.8 mg/dL (8.4-10.2); Carbon Dioxide 28 mmol/L (22-30); Chloride 94 mmol/L (98-107); Estimated CRCL calculation 11 ml/min; Estimated Glomerular Filt Rate 9; Glucose 108 mg/dL (65-105); Magnesium 2.2 mg/dL (1.6-2.3); Potassium 4.3 mmol/L (3.4-5.0); Sodium 130 mmol/L (137-145)
[2020-06-28 06:34] LABS: CRP 5.8 mg/dL (<1.0)
[2020-06-28] MEDS: DORNASE ALFA INH SOLN 1 MG/ML 2.5 ML AMP 2.5 MG INHALATION ×2 (08:56→20:00)
[2020-06-28] MEDS: ONDANSETRON HCL ODT 4 MG TABLET 8 MG PO (09:24)
[2020-06-28] MEDS: SALINE 0.65% NAS SOLN 44 ML BTL 2 SPRAY NASAL (09:24)
[2020-06-28] MEDS: amLODIPine BESYLATE 5 MG TABLET 10 MG PO (09:25)
[2020-06-28] MEDS: guaiFENesin 12 HR 600 MG TABCR 1200 MG PO ×2 (09:25→20:38)
[2020-06-28] MEDS: CITALOPRAM HYDROBROMIDE 20 MG TABLET PO (09:25)
[2020-06-28] MEDS: SEVELAMER CARBONATE 800 MG TABLET 1600 MG PO ×3 (09:25→16:24)
[2020-06-28] MEDS: carvediloL 12.5 MG TABLET PO ×2 (09:26→20:38)
[2020-06-28] MEDS: DEXAMETHASONE SOD PHOS INJ 4 MG/ML VIAL 6 MG IV PUSH (09:26)
[2020-06-28] MEDS: lisinopriL 20 MG TABLET 40 MG PO (09:27)
[2020-06-28] MEDS: SIMVASTATIN 20 MG TABLET PO (09:27)
[2020-06-28] MEDS: polyethylene glycoL 3350 17 GM POWD.PACK PO (10:41)
[2020-06-28] MEDS: HEPARIN SODIUM 5,000 UNITS/ML VIAL 5000 UNITS SUB-Q ×2 (10:41→20:38)
--- NOTE | 2020-06-28 12:42 | PM.IMPN ---
Progress Note: A&P Assessment and Plan (1) Acute respiratory failure with hypoxia: Code(s): J96.01 - Acute respiratory failure with hypoxia Status: Acute Assessment and Plan: Likely multifactorial secondary to COVID-19 (tested on 06/17/20 and results available 06/22/20) and fluid overload w/ moderate right pleural effusion. Chest CTA ordered due to elevated D-dimer, recent immobility, and left ankle fracture and negative for pulmonary embolism but did show large right pleural effusion with adjacent compressive lobar atelectasis and multifocal left lower lobe pneumonia and she is s/p thoracentesis. She was previously on BiPAP and was weaned to room air and has occasionally required oxygen overnight. She has been stable on room air during the day yesterday and today. CXR repeated given oxygen requirement overnight and demonstrates increasing congestion and infiltrates. Will order apnea link tonight given hypoxia at night to assess for night time oxygen needs/potential for BIBI Continue supplemental oxygen with goal oxygen saturation >90%, wean as tolerated Respiratory therapy following with input appreciated Further treatment per plan below (2) COVID-19: Code(s): U07.1 - COVID-19 Status: Acute Assessment and Plan: She tested positive on 06/17/20 and results were available 06/22/20. She was noted to be hypoxic at hemodialysis. Chest CXR demonstrated opacities in the bilateral lower lung zones. She was on BiPAP initially and was weaned to room air. CRP is improving. Increased infiltrates on CXR. She is not a candidate for remdesivir due to ESRD on HD Continue dexamethasone (initiated 06/23) Convalescent plasma was considered but she was weaned to room air. May consider if her respiratory status worsens but she has improved significantly at this time. Continue supportive care with tylenol as needed for fever, PEP therapy, expectorant, and bronchodilator as needed Trend acute phase reactants (3) (HFpEF) heart failure with preserved ejection fraction: Code(s): I50.30 - Unspecified diastolic (congestive) heart failure Status: Acute Assessment and Plan: Grade II diastolic dysfunction. CXR with congestive change. Nephrology following and input appreciated. Plan for more aggressive fluid removal with hemodialysis today. Monitor volume status closely (4) Nausea and vomiting: Code(s): R11.2 - Nausea with vomiting, unspecified Status: Acute Assessment and Plan: She reports nausea and vomiting today. She has no associated abdominal pain and had a bowel movement yesterday. This appears to be a chronic issue as she has zofran at home. RN reported it was dark but did not look like coffee-ground emesis. Continue supportive care with antiemetic as needed Check occult blood in still and vomit should she have another episode of emesis with GI consult if positive (5) Cirrhosis: Code(s): K74.60 - Unspecified cirrhosis of liver Status: Acute Assessment and Plan: Chest CTA suggested cirrhosis and RUQ US further confirms coarsened echotexture and mild surface nodularity consistent with cirrhosis and splenomegaly suggesting portal venous hypertension. Hepatitis panel is negative. She reports no hx of alcohol use. Echo without right sided heart failure. Plan for outpatient follow-up with referral to GI for further workup (6) Lethargy: Code(s): R53.83 - Other fatigue Status: Resolved Assessment and Plan: Resolved. Mentation is at baseline. Per reports, she was disoriented while at the rehab facility and was confused on admission to our facility but has returned to baseline. Confusion on admission was likely secondary to hypoxia as CT brain was unremarkable and ABG without any significant hypercapnia. Respiratory status is much better. Lethargy may have also been secondary to uremia and she is much better today following di
--- NOTE | 2020-06-28 15:32 | PM.PNNEP ---
Progress Note: A&P Assessment and Plan (1) End stage renal disease: Code(s): N18.6 - End stage renal disease Status: Acute Assessment and Plan: normally does HD on /W/ schedule will get HD today later. follow electrolytes, clearance, and volume status (2) Acute respiratory failure with hypoxia: Code(s): J96.01 - Acute respiratory failure with hypoxia Status: Acute Assessment and Plan: presumably due to a combination of COVID-19 + pleural effusion on decadron but remdesivir contraindicated given her ESRD covid 19 timed out. no sx now. (3) Altered mental status: Code(s): R41.82 - Altered mental status, unspecified Status: Acute Assessment and Plan: better acute change versus chronic issue? (however, she recognized me even though I have not seen her in several years) related to acute medical issues(?) - hypoxia, COVID-19, missed HD treatment yesterday?? mentation appears to stable in the last 24 - 48 hours (4) Pleural effusion on right: Code(s): J90 - Pleural effusion, not elsewhere classified Status: Acute Assessment and Plan: acute or chronic? transudative. (5) Hypertension: Code(s): I10 - Essential (primary) hypertension Status: Acute Assessment and Plan: reasonable control follow hemodynamics post-HD (6) Ankle fracture, left: Code(s): S82.892A - Other fracture of left lower leg, initial encounter for closed fracture Status: Acute Assessment and Plan: cast in place follow-up with outpatient Orthopedics (7) Diabetes: Code(s): E11.9 - Type 2 diabetes mellitus without complications Status: Acute Assessment and Plan: follow accuchecks glycemic control Subjective Date/time seen: 06/28/20 15:32 Interval history: Allyson is feeling a bout the same today feels Blah. Review of Systems Cardiovascular: Cardiovascular: Reports no additional cardiovascular complaints Respiratory: Respiratory: Reports no additional respiratory complaints Gastrointestinal: Gastrointestinal: Reports no additional gastrointestinal complaints Genitourinary: Genitourinary: Reports no additional female genitourinary complaints Exam Narrative: Exam Narrative: General: WD/WN female in NAD Heart: normal S1 and S2; no rub or gallop Lungs: decreased breath sounds at bases R.L Abdomen: soft, nontender, nondistended, positive bowel sounds Extremities: no cyanosis or clubbing; no edema; cast in place Skin: no rash Objective Data Vital Signs Vital Signs: Vital Signs - 24 hr 06/27/20 16:00 06/27/20 20:00 06/27/20 20:35 Temperature 36.3 C L 36.9 C Pulse Rate 66 68 82 Respiratory Rate 20 20 Blood Pressure 161/49 H 149/46 H Pulse Oximetry 91 94 06/27/20 20:57 06/27/20 20:58 06/28/20 00:00 Temperature 36.6 C Pulse Rate 72 72 69 Respiratory Rate 20 20 18 Blood Pressure 150/50 H Pulse Oximetry 94 92 06/28/20 04:00 06/28/20 08:00 06/28/20 08:58 Temperature 36.9 C 36.1 C L Pulse Rate 69 69 77 Respiratory Rate 20 16 18 Blood Pressure 151/49 H 168/51 H Pulse Oximetry 94 94 90 06/28/20 09:26 06/28/20 10:25 06/28/20 14:00 Temperature 36.4 C L Pulse Rate 77 77 69 Respiratory Rate 18 16 Blood Pressure 168/51 H Pulse Oximetry 90 91 Intake/Output Intake/Output: Intake & Output 06/25/20 06/26/20 06/27/20 06/28/20 23:59 23:59 23:59 23:59 Intake Total 900 370 720 420 Output Total 1000 1400 0 Balance -100 -1030 720 420 Meds/Results Medications: Active Medications Generic Name Dose Route Start Last Admin Trade Name Freq PRN Reason Stop Dose Admin Acetaminophen 650 mg 06/26/20 12:31 06/27/20 05:12 Acetaminophen 325 Mg Tablet PO 650 mg Q4H PRN Administration Mild Pain (1-3) or Fever Albuterol 2 puff 06/24/20 11:14 Albuterol Sulfate (*Sp) Aerosol 1 Puff INHALATION QIDRT PRN Shortness Of Breat
[2020-06-28] MEDS: MELATONIN 3 MG TABLET PO (20:38)
[2020-06-28] MEDS: SODIUM CHLORIDE 0.9% IV 1,000 ML 100 ML IV CONT (21:00)
--- NOTE | 2020-06-28 21:40 | PC.NURSE ---
2114 patient to dialysis via bed
--- NOTE | 2020-06-28 21:47 | PC.NURSE ---
Spoke with Respiratory therapist. States pt has apnea link order for tonight. Patient in dialysis and will not be out until around 0100. Will not get accurate reading if started when done with dialysis. Due to this will not be getting apnea link tonight per respiratory
--- NOTE | 2020-06-28 22:24 | PCRCNOTE ---
APNEA LINK HELD TONIGHT. PT WILL BE IN DIALYSIS UNTIL ~0100. TAMMIE BRADSHAW NOTIFIED.
[2020-06-28] MEDS: EPOETIN ALFA-EPBX 10,000 UNITS/ML VIAL 10000 UNITS IV PUSH (23:25)
[2020-06-29] VITALS (12 sets, daily range): BP systolic 132–155; BP diastolic 46–70; PULSE 65–80; RESP 16–20; TEMP 35.8–37.2; O2SAT 90–95
--- NOTE | 2020-06-29 01:05 | PC.NURSE ---
0100 Patient returned to room 312 from dialysis via bed
[2020-06-29] MEDS: ACETAMINOPHEN 325 MG TABLET 650 MG PO ×2 (04:47→14:13)
[2020-06-29 06:26] LABS: Basophils Percent Auto 0.3 % (0.2-1.2); Hematocrit 28.7 % (37.0-47.0); Hemoglobin 9.8 g/dL (12.0-15.0); Immature Granulocyte Absolute 0.22 K/mm3 (0.00-0.031); Immature Granulocyte Percent A 1.8 % (0-0.5); Immature Platelet Fraction Pct 7.7 % (0.9-11.2); Lymphocytes Absolute Auto 0.49 K/mm3 (0.9-3.2); Lymphocytes Percent Auto 4.1 % (18.3-44.2); Mean Corpuscular HGB Conc 34.1 g/dl (32-36); Mean Corpuscular Hemoglobin 31.8 pg (26-34); Mean Corpuscular Volume 93.2 fl (80-100); Mean Platelet Volume 11.5 fl (7.4-10.4); Monocytes Absolute Auto 0.6 K/mm3 (0.1-0.6); Monocytes Percent Auto 4.6 % (2.6-8.5); Neutrophils Absolute Auto 10.7 K/mm3 (1.3-6.7); Neutrophils Percent Auto 89.2 % (45.5-73.1); Platelet Count Result 144 k/mm3 (150-375); Red Blood Count 3.08 M/mm3 (4.2-5.4); Red Cell Distribution Width 14.1 % (11.5-14.5)
[2020-06-29 06:37] LABS: Albumin Level 2.8 g/dL (3.5-5.1); Anion Gap 6 mmol/L (8-16); Blood Urea Nitrogen 28 mg/dL (7-17); Calcium 8.4 mg/dL (8.4-10.2); Carbon Dioxide 32 mmol/L (22-30); Chloride 99 mmol/L (98-107); Estimated CRCL calculation 19 ml/min; Estimated Glomerular Filt Rate 18; Glucose 98 mg/dL (65-105); Phosphorus 2.9 mg/dL (2.5-4.5); Potassium 4.1 mmol/L (3.4-5.0); Sodium 137 mmol/L (137-145)
[2020-06-29] MEDS: SEVELAMER CARBONATE 800 MG TABLET 1600 MG PO ×3 (08:08→17:36)
[2020-06-29] MEDS: DEXAMETHASONE SOD PHOS INJ 4 MG/ML VIAL 6 MG IV PUSH (08:08)
[2020-06-29] MEDS: DORNASE ALFA INH SOLN 1 MG/ML 2.5 ML AMP 2.5 MG INHALATION ×2 (08:08→20:34)
[2020-06-29] MEDS: GABAPENTIN 300 MG CAPSULE PO (08:08)
[2020-06-29] MEDS: SIMVASTATIN 20 MG TABLET PO (08:09)
[2020-06-29] MEDS: carvediloL 12.5 MG TABLET PO ×2 (08:09→20:47)
[2020-06-29] MEDS: guaiFENesin 12 HR 600 MG TABCR 1200 MG PO ×2 (08:09→20:46)
[2020-06-29] MEDS: SALINE 0.65% NAS SOLN 44 ML BTL 2 SPRAY NASAL (08:09)
[2020-06-29] MEDS: CITALOPRAM HYDROBROMIDE 20 MG TABLET PO (08:09)
[2020-06-29] MEDS: lisinopriL 20 MG TABLET 40 MG PO (08:10)
[2020-06-29] MEDS: amLODIPine BESYLATE 5 MG TABLET 10 MG PO (08:10)
[2020-06-29] MEDS: SENNOSIDES 8.6 MG TABLET PO (08:14)
[2020-06-29] MEDS: HEPARIN SODIUM 5,000 UNITS/ML VIAL 5000 UNITS SUB-Q ×2 (11:12→20:47)
--- NOTE | 2020-06-29 11:12 | PM.PNNEP ---
Progress Note: A&P Assessment and Plan (1) End stage renal disease: Code(s): N18.6 - End stage renal disease Status: Acute Assessment and Plan: HD on /W/ schedule will get HD today later. follow electrolytes, clearance, and volume status (2) Acute respiratory failure with hypoxia: Code(s): J96.01 - Acute respiratory failure with hypoxia Status: Acute Assessment and Plan: presumably due to a combination of COVID-19 + pleural effusion on decadron but remdesivir contraindicated given her ESRD covid 19 timed out. no sx now. (3) Altered mental status: Code(s): R41.82 - Altered mental status, unspecified Status: Acute Assessment and Plan: resolved. (4) Pleural effusion on right: Code(s): J90 - Pleural effusion, not elsewhere classified Status: Acute Assessment and Plan: transudative. remove fluid as jeremiah (5) Hypertension: Code(s): I10 - Essential (primary) hypertension Status: Acute Assessment and Plan: reasonable control follow hemodynamics post-HD (6) Ankle fracture, left: Code(s): S82.892A - Other fracture of left lower leg, initial encounter for closed fracture Status: Acute Assessment and Plan: cast in place follow-up with outpatient Orthopedics (7) Diabetes: Code(s): E11.9 - Type 2 diabetes mellitus without complications Status: Acute Assessment and Plan: follow accuchecks glycemic control Subjective Date/time seen: 06/29/20 11:12 Interval history: Allyson is feeling a bout the same today she had dialysis yesterday and did well. Exam Narrative: Exam Narrative: General: WD/WN female in NAD Heart: normal S1 and S2; no rub or gallop Lungs: decreased breath sounds at bases R.L Abdomen: soft, nontender, nondistended, positive bowel sounds Extremities: no cyanosis or clubbing; no edema; cast in place Skin: no rash or sq nodules Objective Data Vital Signs Vital Signs: Vital Signs - 24 hr 06/28/20 14:00 06/28/20 20:00 06/28/20 20:01 Temperature 36.4 C L Pulse Rate 69 77 Respiratory Rate 16 20 Blood Pressure 168/51 H Pulse Oximetry 91 93 93 06/28/20 20:02 06/28/20 20:38 06/28/20 21:05 Temperature 36.2 C L Pulse Rate 77 77 66 Respiratory Rate 20 20 Blood Pressure 151/50 H Pulse Oximetry 92 06/28/20 21:25 06/28/20 21:36 06/28/20 21:45 Temperature 36.6 C Pulse Rate 67 66 64 Respiratory Rate 18 Blood Pressure 162/74 H 161/71 H 146/68 H Pulse Oximetry 06/28/20 22:00 06/28/20 22:15 06/28/20 22:30 Temperature Pulse Rate 64 66 65 Respiratory Rate Blood Pressure 132/62 139/67 128/62 Pulse Oximetry 06/28/20 22:45 06/28/20 23:00 06/28/20 23:15 Temperature Pulse Rate 65 65 66 Respiratory Rate Blood Pressure 131/65 139/62 131/58 L Pulse Oximetry 06/28/20 23:30 06/28/20 23:45 06/29/20 00:00 Temperature 36.4 C Pulse Rate 66 66 70 Respiratory Rate 20 Blood Pressure 135/65 136/63 148/54 H Pulse Oximetry 94 06/29/20 00:15 06/29/20 00:36 06/29/20 00:46 Temperature 36.7 C Pulse Rate 66 69 67 Respiratory Rate 16 Blood Pressure 132/61 137/61 155/70 H Pulse Oximetry 06/29/20 08:00 06/29/20 08:09 06/29/20 08:16 Temperature 35.8 C L Pulse Rate 77 74 80 Respiratory Rate 18 20 20 Blood Pressure 154/46 H Pulse Oximetry 94 92 Intake/Output Intake/Output: Intake & Output 06/26/20 06/27/20 06/28/20 06/29/20 23:59 23:59 23:59 23:59 Intake Total 370 720 780 620 Output Total 1400 0 2500 Balance -1030 720 780 -1880 Meds/Results Medications: Active Medications Generic Name Dose Route Start Last Admin Trade Name Freq PRN Reason Stop Dose Admin Acetaminophen 650 mg 06/26/20 12:31 06/29/20 04:47 Acetaminophen 325 Mg Tablet PO 650 mg Q4H PRN Administration Mild Pain (1-3) or Fever Albuterol 2 puff 06/24/20 11:14 Albut
--- NOTE | 2020-06-29 12:41 | PM.IMPN ---
Progress Note: A&P Assessment and Plan (1) Acute respiratory failure with hypoxia: Code(s): J96.01 - Acute respiratory failure with hypoxia Status: Acute Assessment and Plan: Likely multifactorial secondary to COVID-19 and fluid overload w/ moderate right pleural effusion. Chest CTA ordered due to elevated D-dimer, recent immobility, and left ankle fracture was negative for pulmonary embolism but did show large right pleural effusion with adjacent compressive lobar atelectasis and multifocal left lower lobe pneumonia. She is s/p thoracentesis on 06/25. CXR to demonstrated increased congestion and infiltrates She was previously requiring BiPAP and was slowly weaned. Currently, she is maintaining adequate O2 sats on room air. Continue supplemental oxygen with goal oxygen saturation >90%, wean as tolerated Appreciate RT evaluation Apnea link ordered on 06/28, however was held as patient was in dialysis until very late. Plan to attempt tonight to assess for BIBI and potential nocturnal oxygen requirements Continue with treatment of COVID-19, CHF, and pleural effusion. (2) COVID-19: Code(s): U07.1 - COVID-19 Status: Acute Assessment and Plan: She tested positive on 06/17/20 and results were available 06/22/20. She was noted to be hypoxic at outpatient hemodialysis appointment. CXR demonstrated opacities in the bilateral lower lung zones. She was on BiPAP initially and was weaned to room air. CRP is improving. She is not a candidate for remdesivir due to ESRD on HD Continue dexamethasone (initiated 06/23). Mild leukocytosis noted today, felt to be secondary to steroids. Continue supportive care with tylenol as needed for fever, PEP therapy, expectorant, and bronchodilator as needed Trend acute phase reactants Supplemental O2 available as needed. Currently stable on room air. Monitor O2 requirements and adjust treatment as needed (3) (HFpEF) heart failure with preserved ejection fraction: Code(s): I50.30 - Unspecified diastolic (congestive) heart failure Status: Acute Assessment and Plan: Grade II diastolic dysfunction evident on echocardiogram performed on 06/26. CXR with congestive change. Approximately 2 L negative fluid balance Nephrology following and input appreciated. Monitor volume status closely. Continue to monitor intake and output (4) Pleural effusion on right: Code(s): J90 - Pleural effusion, not elsewhere classified Status: Acute Assessment and Plan: Appears to be a chronic issue as the patient reports she has had this in the past. Unilateral large right pleural effusion with associated compressive lobar atelectasis and she is s/p ultrasound guided thoracentesis today. pH is normal at 7.447. Fluid was cloudy yellow. Pleural RBC is 314 and 167 nucleated cells. Pleural protein, albumin, LDH, and glucose are pending. The patient reports a hx of right sided pleural effusion. Echo shows normal LV systolic function EF 60-65% and grade II diastolic dysfunction. Appears transudative based on initial studies. Considerations include CHF vs cirrhosis. Await additional studies and pathology which are pending Plan for follow-up outpatient. Will refer to pulmonology. (5) Nausea and vomiting: Code(s): R11.2 - Nausea with vomiting, unspecified Status: Acute Assessment and Plan: She reported nausea and vomiting 3/. She had no associated abdominal pain and reports regular bowel movements. She does have home zofran so this may be chronic issue, however she is unable to elaborate. RN reported emesis was dark but did not look like coffee-ground emesis. Continues to complain of nausea today without emesis. Continue supportive care with antiemetic as needed Begin Pepcid Fecal occult blood test has been ordered, however low suspicion for GI bleed given stable H&H and description not consistent with hematemesis. Will check lipase
[2020-06-29] MEDS: FAMOTIDINE 20 MG/2 ML VIAL IV PUSH (20:46)
[2020-06-29] MEDS: MELATONIN 3 MG TABLET PO (20:47)
[2020-06-30] VITALS (22 sets, daily range): BP systolic 123–180; BP diastolic 55–91; PULSE 66–74; RESP 18; TEMP 36.4–37; O2SAT 90–97; BMI 30.4
[2020-06-30 06:38] LABS: Hematocrit 26.2 % (37.0-47.0); Hemoglobin 8.8 g/dL (12.0-15.0); Immature Platelet Fraction Pct 8.2 % (0.9-11.2); Mean Corpuscular HGB Conc 33.6 g/dl (32-36); Mean Corpuscular Hemoglobin 31.1 pg (26-34); Mean Corpuscular Volume 92.6 fl (80-100); Mean Platelet Volume 11.2 fl (7.4-10.4); Platelet Count Result 125 k/mm3 (150-375); Red Blood Count 2.83 M/mm3 (4.2-5.4); Red Cell Distribution Width 13.7 % (11.5-14.5); White Blood Count 12.5 K/mm3 (4.5-10.0)
[2020-06-30 06:53] LABS: Glucose Pleural Fluid 103 mg/dL; LDH Pleural Fluid 110 U/L; Total Protein Pleural Fluid <3.0 g/dL
[2020-06-30 07:14] LABS: Alanine Aminotransferase 12 U/L (4-35); Albumin Level 2.5 g/dL (3.5-5.1); Alkaline Phosphatase 50 U/L (38-126); Anion Gap 4 mmol/L (8-16); Aspartate Amino Transferase 28 U/L (14-36); Bilirubin,Total 1.2 mg/dL (0.2-1.3); Blood Urea Nitrogen 48 mg/dL (7-17); CRP 2.6 mg/dL (<1.0); Calcium 8.2 mg/dL (8.4-10.2); Carbon Dioxide 32 mmol/L (22-30); Chloride 97 mmol/L (98-107); Estimated CRCL calculation 13 ml/min; Estimated Glomerular Filt Rate 12; Glucose 149 mg/dL (65-105); Lipase 232 U/L (23-300); Phosphorus 2.8 mg/dL (2.5-4.5); Potassium 4.3 mmol/L (3.4-5.0); Sodium 133 mmol/L (137-145)
[2020-06-30 07:43] LABS: Glucose Point of Care 140 (65-105)
--- NOTE | 2020-06-30 08:50 | PCOTNOTE ---
Attempted to see patient this am, however patient in dialysis.
[2020-06-30 11:49] LABS: Glucose Point of Care 99 (65-105)
--- NOTE | 2020-06-30 12:49 | PCOTNOTE ---
Attempted to see patient this pm, however patient still in dialysis.
[2020-06-30] MEDS: CITALOPRAM HYDROBROMIDE 20 MG TABLET PO (13:25)
[2020-06-30] MEDS: SEVELAMER CARBONATE 800 MG TABLET 1600 MG PO ×2 (13:25→17:36)
[2020-06-30] MEDS: carvediloL 12.5 MG TABLET PO (13:25)
[2020-06-30] MEDS: SIMVASTATIN 20 MG TABLET PO (13:26)
[2020-06-30] MEDS: guaiFENesin 12 HR 600 MG TABCR 1200 MG PO (13:26)
[2020-06-30] MEDS: amLODIPine BESYLATE 5 MG TABLET 10 MG PO (13:26)
[2020-06-30] MEDS: lisinopriL 20 MG TABLET 40 MG PO (13:26)
[2020-06-30] MEDS: DEXAMETHASONE SOD PHOS INJ 4 MG/ML VIAL 6 MG IV PUSH (13:27)
[2020-06-30] MEDS: FAMOTIDINE 20 MG/2 ML VIAL IV PUSH (13:28)
[2020-06-30] MEDS: HEPARIN SODIUM 5,000 UNITS/ML VIAL 5000 UNITS SUB-Q (13:34)
--- NOTE | 2020-06-30 14:00 | PCNSR ---
On 06/30/20, the student, Niki Nicholson, provided care and completed [facility] documentation on this patient. I have reviewed the student's documentation and agree with the findings.
--- NOTE | 2020-06-30 14:21 | PCPTNOTE ---
The PT treatment was unable to be completed today. Patient discharging to rehab and does not want to participate in PT today. Will continue per Plan of Care frequency and duration.
--- NOTE | 2020-06-30 14:39 | PM.PNNEP ---
Progress Note: A&P Assessment and Plan (1) End stage renal disease: Code(s): N18.6 - End stage renal disease Status: Acute Assessment and Plan: HD today fluid status looks okay. Will take a little fluid off (2) Acute respiratory failure with hypoxia: Code(s): J96.01 - Acute respiratory failure with hypoxia Status: Acute Assessment and Plan: presumably due to a combination of COVID-19 + pleural effusion on decadron but remdesivir contraindicated given her ESRD covid 19 timed out. no sx now. (3) Altered mental status: Code(s): R41.82 - Altered mental status, unspecified Status: Acute Assessment and Plan: resolved. (4) Pleural effusion on right: Code(s): J90 - Pleural effusion, not elsewhere classified Status: Acute Assessment and Plan: transudative. remove fluid as jeremiah (5) Hypertension: Code(s): I10 - Essential (primary) hypertension Status: Acute Assessment and Plan: reasonable control follow hemodynamics post-HD (6) Ankle fracture, left: Code(s): S82.892A - Other fracture of left lower leg, initial encounter for closed fracture Status: Acute Assessment and Plan: cast in place follow-up with outpatient Orthopedics no edema noted (7) Diabetes: Code(s): E11.9 - Type 2 diabetes mellitus without complications Status: Acute Assessment and Plan: follow accuchecks glycemic control Subjective Date/time seen: 06/30/20 14:39 Interval history: Allyson is feeling about the same today She is on dialysis now and tolerating it well. She was seen at 10:30 a.m. blood pressure is doing well and fluid is coming off I Exam Narrative: Exam Narrative: General: WD/WN female in NAD Heart: normal S1 and S2; no rub or gallop Lungs: decreased breath sounds at bases R.L Abdomen: soft, nontender, nondistended, positive bowel sounds Extremities: no cyanosis or clubbing; no edema; cast in place Skin: no rash Objective Data Vital Signs Vital Signs: Vital Signs - 24 hr 06/29/20 16:00 06/29/20 20:36 06/29/20 20:37 Temperature 36.1 C L Pulse Rate 69 69 Respiratory Rate 18 18 Blood Pressure 154/58 H Pulse Oximetry 95 90 06/29/20 21:00 06/29/20 22:20 06/30/20 05:48 Temperature 37.2 C 36.4 C L Pulse Rate 65 70 Respiratory Rate 16 18 Blood Pressure 155/52 H 123/60 Pulse Oximetry 92 90 90 06/30/20 08:45 06/30/20 08:55 06/30/20 09:00 Temperature 36.7 C Pulse Rate 70 68 66 Respiratory Rate 18 Blood Pressure 168/71 H 154/91 H 168/74 H Pulse Oximetry 06/30/20 09:15 06/30/20 09:30 06/30/20 09:45 Temperature Pulse Rate 70 68 70 Respiratory Rate Blood Pressure 158/70 H 149/71 H 141/67 H Pulse Oximetry 06/30/20 10:00 06/30/20 10:15 06/30/20 10:30 Temperature Pulse Rate 70 71 71 Respiratory Rate Blood Pressure 150/66 H 145/70 H 151/55 H Pulse Oximetry 06/30/20 10:45 06/30/20 11:00 06/30/20 11:15 Temperature Pulse Rate 72 71 74 Respiratory Rate Blood Pressure 149/62 H 138/70 141/68 H Pulse Oximetry 06/30/20 11:30 06/30/20 11:45 06/30/20 12:00 Temperature Pulse Rate 70 70 70 Respiratory Rate Blood Pressure 143/66 H 134/71 141/65 H Pulse Oximetry 06/30/20 12:15 06/30/20 12:17 06/30/20 12:35 Temperature 36.7 C 36.7 C Pulse Rate 70 71 71 Respiratory Rate 18 18 Blood Pressure 135/69 132/78 180/79 H Pulse Oximetry 06/30/20 13:25 Temperature Pulse Rate 71 Respiratory Rate Blood Pressure Pulse Oximetry Intake/Output Intake/Output: Intake & Output 06/27/20 06/28/20 06/29/20 06/30/20 23:59 23:59 23:59 23:59 Intake Total 405 467 9065 150 Output Total 0 2792 9055 Balance 783 029 -6826 -9108 Meds/Results Medications: Active Medications Generic Name Dose Route Start Last Admin Trade Name Freq PRN Reason Stop Dose Admin Acetaminophen 65
--- NOTE | 2020-06-30 14:40 | PM.DS ---
DS: Admitting Diagnosis Admitting Diagnosis Admitting Diagnosis: Dyspnea DS: Discharge Diagnosis Discharge Diagnosis (1) Acute respiratory failure with hypoxia: Code(s): J96.01 - Acute respiratory failure with hypoxia Status: Acute Assessment and Plan: Likely multifactorial secondary to COVID-19 and fluid overload w/ moderate right pleural effusion. Chest CTA ordered due to elevated D-dimer, recent immobility, and left ankle fracture was negative for pulmonary embolism but did show large right pleural effusion with adjacent compressive lobar atelectasis and multifocal left lower lobe pneumonia. She is s/p thoracentesis on 06/25. CXR 06/27 demonstrated increased congestion and infiltrates She was previously requiring BiPAP and was slowly weaned to room air, and had been stable on room air. Apnea link ordered which demonstrated high index of suspicion for BIBI, and she will need to obtain a formal sleep study. She was treated for COVID-19, CHF, and pleural effusion. (2) COVID-19: Code(s): U07.1 - COVID-19 Status: Acute Assessment and Plan: She tested positive on 06/17/20 and results were available 06/22/20. She was noted to be hypoxic at outpatient hemodialysis appointment. CXR demonstrated opacities in the bilateral lower lung zones. She was on BiPAP initially and was weaned to room air. She received IV Dexamethasone. Not a candidate for remdesivir due to ESRD. Supportive care provided. Isolation precautions discontinued following 10 days of isolation. (3) (HFpEF) heart failure with preserved ejection fraction: Code(s): I50.30 - Unspecified diastolic (congestive) heart failure Status: Acute Assessment and Plan: Grade II diastolic dysfunction evident on echocardiogram performed on 06/26. CXR with congestive change. Fluid was removed in dialysis. Intake and output monitored closely and she had approximately 4 L negative fluid balance. Continue with dialysis. (4) Pleural effusion on right: Code(s): J90 - Pleural effusion, not elsewhere classified Status: Acute Assessment and Plan: She had unilateral large right pleural effusion with associated compressive lobar atelectasis and she is s/p ultrasound guided thoracentesis on 06/25/20. She has a history of right sided pleural effusion. Pleural fluid was transudative. Cytology negative for malignancy. Suspect CHF vs cirrhosis. She will need to follow up with PCP and may benefit from pulmonology referral. (5) Nausea and vomiting: Code(s): R11.2 - Nausea with vomiting, unspecified Status: Acute Assessment and Plan: She reported nausea and vomiting 3/. She had no associated abdominal pain and reports regular bowel movements. RN reported emesis was dark but did not look like coffee-ground emesis. No decline in H&H and do not suspect GI bleed as description not consistent with hematemesis. Lipase wnl. Nausea and vomiting resolved and she was able to tolerate a regular diet. (6) Cirrhosis: Code(s): K74.60 - Unspecified cirrhosis of liver Status: Acute Assessment and Plan: Chest CTA suggested cirrhosis and RUQ US further confirmed coarsened echotexture and mild surface nodularity consistent with cirrhosis and splenomegaly suggesting portal venous hypertension. Hepatitis panel is negative. She reports no hx of alcohol use. Echo without right sided heart failure. LFTs wnl. She had mild thrombocytopenia. INR wnl. I referred her to GI to obtain follow up imaging and labs. (7) End-stage renal disease on hemodialysis: Code(s): N18.6 - End stage renal disease; Z99.2 - Dependence on renal dialysis Status: Acute Assessment and Plan: She dialyzes on a M,W,F schedule. she was seen in consultation by Nephrology during her stay in her regular dialysis schedule was continued. Electrolytes stable. Continue renal dialysis diet. (8) Insulin dependent type 2 diabetes mellitus:
[2020-06-30 17:08] LABS: Glucose Point of Care 124 (65-105)
--- NOTE | 2020-06-30 20:38 | PC.NURSE ---
2030 pt left via ambulance to [facility]. Call made to [facility] for them to call [facility] dialysis in morning to set up appointments for patient, also to inform of discharge of patient.
[2020-06-30 22:46] LABS: Albumin Pleural Fluid 1.6 g/dL
== END 2020-06-30 20:30 | DRG 177 ==
LOC: ANHED 15:29 → ANHIMU 06-24 07:08 → ANH3MEDSUR 06-28 10:13 → ANHIMU 07-02 13:41
PROVIDERS: Internal Medicine Nephrology; Physician Assistant; Admitting Provider Family Medicine; Emergency Provider Emergency Medicine; PCP Internal Medicine; Visit Provider Physician Assistant
DX: U07.1 COVID-19 (principal); J96.01 Acute respiratory failure with hypoxia; N18.6 End stage renal disease; J12.82 Pneumonia due to coronavirus disease 2019; I13.2 Hypertensive heart and chronic kidney disease with heart failure and with stage 5 chronic kidney disease, or end stage renal disease; I50.30 Unspecified diastolic (congestive) heart failure; J91.8 Pleural effusion in other conditions classified elsewhere; E87.8 Other disorders of electrolyte and fluid balance, not elsewhere classified; D63.8 Anemia in other chronic diseases classified elsewhere; I35.0 Nonrheumatic aortic (valve) stenosis; K74.60 Unspecified cirrhosis of liver; K82.4 Cholesterolosis of gallbladder; E11.22 Type 2 diabetes mellitus with diabetic chronic kidney disease; Z99.2 Dependence on renal dialysis; R41.82 Altered mental status, unspecified; E11.40 Type 2 diabetes mellitus with diabetic neuropathy, unspecified; E11.319 Type 2 diabetes mellitus with unspecified diabetic retinopathy without macular edema; R11.2 Nausea with vomiting, unspecified; F32.9 Major depressive disorder, single episode, unspecified; E78.5 Hyperlipidemia, unspecified; S82.892A Other fracture of left lower leg, initial encounter for closed fracture; X58.XXXA Exposure to other specified factors, initial encounter; Z79.4 Long term (current) use of insulin; Z79.899 Other long term (current) drug therapy; Z87.891 Personal history of nicotine dependence
CPT/HCPCS: 32555; 36415; 36600; 70450; 71045; 71275; 76705; 80048; 80053; 80069; 80074; 82042; 82140; 82375; 82550; 82607; 82728; 82746; 82805; 82945; 82948; 83036; 83050; 83540; 83550; 83605; 83615; 83690; 83735; 83986; 84100; 84157; 84443; 85025; 85027; 85055; 85380; 85610; 85730; 86140; 86706; 86900; 86901; 87015; 87040; 87070; 87075; 87102; 87116; 87205; 87206; 88104; 88108; 88184; 88305; 89051; 93005; 93306; 93970; 94002; 94003; 94640; 94667; 94762; 97110; 97161; 97165; 97530; 97535; 99291; A9270; G0257; J0131; J1100; J1644; J7030; Q5106; Q9967